=== PATIENT | female | born 1980 | race African-American/Black ===

== ENCOUNTER 2019-05-29 19:53 | Emergency (ER) | payer OTHER ==
[2019-05-29] MEDS ORDERED: BUFFERED LIDOCAINE 10 ML SYRINGE SUBQ STA (20:19)
--- NOTE | 2019-05-29 20:20 | ED Physician Documentation ---
PD HPI LOWER EXT INJURY - Stated complaint Stated Complaint: RT TOE INJURY - Chief complaint Chief Complaint: Trauma Ext - History obtained from History obtained from: Patient (She hit her right fourth toe into a door jam at home just prior to arrival with moderate pain. No other injuries. No possibility of .) Review of Systems Constitutional: reports: Reviewed and negative Throat: reports: Reviewed and negative Cardiac: reports: Reviewed and negative PD PAST MEDICAL HISTORY - Past Medical History Past Medical History: No - Past Surgical History Past Surgical History: No - Present Medications Home Medications: Ambulatory Orders Medication Instructions Recorded Confirmed No Known Home Medications 05/29/19 05/29/19 - Allergies Allergies/Adverse Reactions: Allergies Allergy/AdvReac Type Severity Reaction Status Date / Time No Known Drug Allergies Allergy Verified 05/29/19 20:01 - Social History Does the pt smoke?: No Smoking Status: Never smoker Does the pt drink ETOH?: No Does the pt have substance abuse?: No - Immunizations Immunizations are current?: Yes - POLST Patient has POLST: No PD ED PE NORMAL - Vitals Vital signs reviewed: Yes - General General: Alert and oriented X 3, No acute distress - Extremities Extremities: Other (There is a slight rotational deformity and tenderness of the proximal fourth right toe with normal neurovascular status.) - Neuro Neuro: Alert and oriented X 3, Normal speech Results - Vitals Vitals: Vital Signs - 24 hr 05/29/19 19:57 Temperature 36.8 C Heart Rate 77 Respiratory 16 Rate Blood Pressure 130/85 H O2 Saturation 97 - Rads (name of study) R 4th toe Radiology: EMP read contemporaneously (Slightly angulated and displaced fracture of the right fourth toe proximal phalanx) Procedures - Reduction Body part reduced: Right, Toe (4th) Fracture or dislocation: Fracture dislocation Anesthesia: Digital block (With buffered lidocaine) Reduction aftercare: Alignment improved, Splint applied (Camille taped in a fracture shoe by the tech) Departure - Departure Disposition: 01 Home, Self Care Clinical Impression: Fractured toe Qualifiers: Encounter type: initial encounter Toe: lesser toe Fracture type: closed Phalanx: proximal Fracture alignment: displaced Laterality: right Qualified Code(s): S92.511A - Displaced fracture of proximal phalanx of right lesser toe(s), initial encounter for closed fracture Condition: Good Record reviewed to determine appropriate education?: Yes Instructions: ED Fx Toe Closed Comments: Keep the toes camille taped as shown. And wear the special shoe for at least a couple of weeks. Return for new or worsening symptoms. Ibuprofen or Tylenol as needed for pain.
[2019-05-29 20:58] VITALS: BP 130/78
--- NOTE | 2019-05-29 21:05 | XRAY Report ---
Reason: toe inbj Procedure Date: 05/29/2019 Accession Number: [id number] / [id number] Procedure: XR - Toe(s) RT CPT Code: Final Report FULL RESULT: EXAM: RIGHT TOE RADIOGRAPHY EXAM DATE: 05/29/2019 08:32 PM. CLINICAL HISTORY: Toe inbj. COMPARISON: None. TECHNIQUE: 3 views. FINDINGS: Bones: An acute displaced spiral fracture through mid proximal phalanx of right fourth digit. Joints: Normal. No subluxations. Soft Tissues: Normal. No soft tissue swelling. IMPRESSION: An acute displaced spiral fracture through mid proximal phalanx of right fourth digit. RADIA
== END 2019-05-29 20:57 | disposition home or self-care (01) ==
LOC: ED 19:53
DX: S92.511A Displaced fracture of proximal phalanx of right lesser toe(s), initial encounter for closed fracture (principal); W22.09XA Striking against other stationary object, initial encounter; Y92.009 Unspecified place in unspecified non-institutional (private) residence as the place of occurrence of the external cause
CPT/HCPCS: 28515; 73660

== ENCOUNTER 2019-12-16 03:08 | Emergency (ER) | payer OTHER ==
--- NOTE | 2019-12-16 03:25 | ED Physician Documentation ---
PD HPI CHEST PAIN - Stated complaint Stated Complaint: TIGHT CHEST - Chief complaint Chief Complaint: General PD PAST MEDICAL HISTORY - Past Surgical History Past Surgical History: No - Present Medications Home Medications: Ambulatory Orders Medication Instructions Recorded Confirmed No Known Home Medications 05/29/19 05/29/19 - Allergies Allergies/Adverse Reactions: Allergies Allergy/AdvReac Type Severity Reaction Status Date / Time No Known Drug Allergies Allergy Verified 12/16/19 03:22 - Social History Does the pt smoke?: No Smoking Status: Never smoker Does the pt drink ETOH?: No Does the pt have substance abuse?: No - Immunizations Immunizations are current?: Yes - POLST Patient has POLST: No Results - Vitals Vitals: Vital Signs - 24 hr 12/16/19 03:19 Temperature 36.5 C Heart Rate 79 Respiratory 17 Rate Blood Pressure 132/82 H O2 Saturation 100 Oxygen O2 Source Room air
--- NOTE | 2019-12-16 03:26 | ED Physician Documentation ---
History of Present Illness - Stated complaint Stated Complaint: TIGHT CHEST - Chief complaint Chief Complaint: General - History obtained from History obtained from: Patient - History of Present Illness Timing: How many days ago (3) Pain level max: 0 Pain level now: 0 Improved by: no ameliorating factors Worsened by: no exacerbating factors - Additonal information Additional information: c/o 3 days of "tension" (per patient) sensation in right chest, right side of neck and throat. she c/o post-nasal drip, dry cough. denies dyspnea. she is 6 weeks 5 days Review of Systems Constitutional: denies: Fever, Chills, Sweats Cardiac: reports: Chest pain / pressure (right-sided chest "tension", per patient although she denies enrico pain). denies: Palpitations, Pedal edema, Calf pain Respiratory: reports: Cough (mild, occasional nonproductive cough). denies: Dyspnea, Hemoptysis, Wheezing GI: denies: Abdominal Pain : reports: Now EGA (6w5d) Musculoskeletal: denies: Extremity swelling PD PAST MEDICAL HISTORY - Past Medical History Past Medical History: Yes Respiratory: Asthma - Past Surgical History Past Surgical History: No - Present Medications Home Medications: Ambulatory Orders Medication Instructions Recorded Confirmed No Known Home Medications 05/29/19 05/29/19 - Allergies Allergies/Adverse Reactions: Allergies Allergy/AdvReac Type Severity Reaction Status Date / Time No Known Drug Allergies Allergy Verified 12/16/19 03:22 - Social History Does the pt smoke?: No Smoking Status: Never smoker Does the pt drink ETOH?: No Does the pt have substance abuse?: No - Immunizations Immunizations are current?: Yes - POLST Patient has POLST: No PD ED PE NORMAL - Vitals Vital signs reviewed: Yes - General General: Alert and oriented X 3, No acute distress, Well developed/nourished - Neck Neck: Supple, no meningeal sign - Cardiac Cardiac: RRR, No murmur, No gallop, No rub - Respiratory Respiratory: No respiratory distress, Clear bilaterally - Abdomen Abdomen: Soft, Non tender - Extremities Extremities: No edema Results - Vitals Vitals: Vital Signs - 24 hr 12/16/19 04:37 Temperature 36.6 C Heart Rate 72 Respiratory 16 Rate Blood Pressure 125/72 O2 Saturation 100 Oxygen O2 Source Room air - EKG (time done) No standard instances Rate: Rate (enter#) (77) Rhythm: NSR [place]: Normal Intervals: Normal OK QRS: Normal Ischemia: Normal ST segments PD MEDICAL DECISION MAKING - ED course Complexity details: considered differential, d/w patient ED course: VSS, NAD, and unremarkable exam including auscultation of lungs. EKG is unremarkable. Low suspicion for PE. I recommended cxr to screen for early evidence of infection or pneumothorax, though these are unlikely given vital signs and unremarkable exam. Patient declines cxr, will return if worse, f/u with PMD. Departure - Departure Disposition: 01 Home, Self Care Clinical Impression: Chest pain Condition: Good Instructions: ED Chest Pain Atypical Unkn Cause Discharge Date/Time: 12/16/19 04:38
[2019-12-16 04:38] VITALS: BP 125/72
== END 2019-12-16 04:38 | disposition home or self-care (01) ==
LOC: ED 03:08
DX: O99.891 Other specified diseases and conditions complicating pregnancy (principal); R07.89 Other chest pain; R05 Cough; R09.82 Postnasal drip; Z3A.01 Less than 8 weeks gestation of pregnancy
CPT/HCPCS: 93005; 99283; 99284

== ENCOUNTER 2020-05-15 09:06 | Outpatient (CLI) | payer OTHER ==
[2020-05-15 10:14] LABS: HCT - HEMATOCRIT 32.7 % (37.0-47.0); MEAN CORPUSCULAR HEMOGLOBIN 32.8 pg (27.0-31.0); MEAN CORPUSCULAR HGB CONC 33.6 g/dL (32.0-36.0); MEAN CORPUSCULAR VOLUME 97.6 fL (81.0-99.0); MEAN PLATELET VOLUME 8.5 fL (7.9-10.8); RED BLOOD COUNT 3.35 10^6/uL (4.20-5.40); RED CELL DISTRIBUTION WIDTH 11.7 % (12.0-15.0); WHITE BLOOD COUNT 7.4 x10^3/uL (4.8-10.8)
== END 2020-05-15 09:07 | disposition home or self-care (01) ==
LOC: LAB 09:06
PROVIDERS: ATTEND Advanced Practice Midwife
DX: O09.529 Supervision of elderly multigravida, unspecified trimester (principal); Z36.89 Encounter for other specified antenatal screening
CPT/HCPCS: 36415; 82950; 85027

== ENCOUNTER 2020-05-22 11:40 | Outpatient (CLI) | payer OTHER | END 2020-05-22 11:41 | disposition home or self-care (01) | LOC: LAB 11:40 | PROVIDERS: ATTEND Nurse Practitioner Obstetrics & Gynecology | DX: O99.810 Abnormal glucose complicating pregnancy (principal) ==

== ENCOUNTER 2020-05-23 11:11 | Outpatient (CLI) | payer OTHER ==
[2020-05-23 12:16] LABS: GTT GLUCOSE,FASTING 83 mg/dL (70-100)
== END 2020-05-23 11:12 | disposition home or self-care (01) ==
LOC: LAB 11:11
PROVIDERS: ATTEND Nurse Practitioner Obstetrics & Gynecology
DX: O99.810 Abnormal glucose complicating pregnancy (principal)
CPT/HCPCS: 36415; 82951; 82952

== ENCOUNTER 2020-06-01 16:55 | Outpatient (CLI) | payer OTHER | END 2020-06-01 16:56 | disposition home or self-care (01) | LOC: LAB 16:55 | PROVIDERS: ATTEND Advanced Practice Midwife | DX: O09.529 Supervision of elderly multigravida, unspecified trimester (principal) | CPT/HCPCS: 36415; 82239 ==

== ENCOUNTER 2020-06-27 08:00 | Outpatient (CLI) | payer OTHER | END 2020-06-27 23:59 | disposition home or self-care (01) | LOC: LAB.WC 08:00 | PROVIDERS: ATTEND Advanced Practice Midwife | DX: Z36.85 Encounter for antenatal screening for Streptococcus B (principal); O09.529 Supervision of elderly multigravida, unspecified trimester | CPT/HCPCS: 87797 ==

== ENCOUNTER 2020-07-28 09:42 | Inpatient (IN) | payer OTHER ==
[2020-07-28] MEDS ORDERED: OXYTOCIN/SODIUM CHLORIDE 500 ML IV PRN (09:55)
[2020-07-28] MEDS ORDERED: OXYTOCIN 10 UNIT/ML VIAL IM PRN (09:55)
[2020-07-28] MEDS ORDERED: METHYLERGONOVINE 0.2 MG/ML VIAL IM PRN (09:55)
[2020-07-28] MEDS ORDERED: miSOPROStoL 200 MCG TABLET BC PRN (09:55)
[2020-07-28] MEDS ORDERED: SODIUM CHLORIDE FLUSH 0.9% 10 ML SYRINGE IVP PRN (09:55)
[2020-07-28] MEDS ORDERED: TRANEXAMIC ACID IN NACL 1,000 MG/100 ML BAG IV PRN (09:55)
[2020-07-28] MEDS ORDERED: LIDOCAINE-MPF 1% 30 ML VIAL ID PRN (09:55)
[2020-07-28] MEDS ORDERED: CARBOPROST TROMETHAMINE 250 MCG/ML AMP IM PRN (09:55)
[2020-07-28] MEDS ORDERED: ONDANSETRON 4 MG/2 ML VIAL IVP PRN (09:56)
[2020-07-28] MEDS ORDERED: LACTATED RINGERS 1,000 ML IV SCH (10:00)
--- NOTE | 2020-07-28 10:21 | HISTORY & PHYSICAL EXAMINATION ---
Admit History - Visit Reason Visit Reason: Contractions, Bloody show - : 5 Parity: 3 Premature: 0 Ectopic: 0 : 1 Care: positive: [facility] Risk/History: positive: None Complications This : positive: None Smoking Status: Never smoker - Mother's Labs Mother's Blood Type: positive: O Mother's RH: positive: Positive GBS: positive: Group B Step Negative Rubella Status: positive: Immune Meds/Allgy - Home Medications Home Medications: Ambulatory Orders Medication Instructions Recorded Confirmed No Known Home Medications 05/29/19 05/29/19 - Allergies Allergies/Adverse Reactions: Allergies Allergy/AdvReac Type Severity Reaction Status Date / Time No Known Drug Allergies Allergy Verified 12/16/19 03:22 Review of Systems - Constitutional Constitutional: denies: Fatigue, Fever, Chills, Malaise - Eyes Eyes: denies: Blurred vision, Spots in vision, Dipolpia - Cardiovascular Cariovascular: denies: Irregular heart rate, Palpitations, Chest pain - Respiratory Respiratory: denies: Cough, SOB at rest - Gastrointestinal Gastrointestinal: denies: Constipation, Diarrhea, Change in bowel habits - Integumentary Integumentary: denies: Rash, Pruritis - Neurological Neurological: denies: Headache Physical - Abdominal Exam Contraction Frequency (min/apart): 3-5 Contraction Intensity: positive: Strong Uterine Resting Tone: positive: Soft - Monitoring Heart Rate Baseline: 140 Strip Review: positive: Category I - Presentation Presentation: positive: Vertex - Vaginal Exam Membranes: positive: Membranes intact Dilation (in cm): 8 Effacement (%): 90 Station: positive: 1 Cervical Position: positive: Anterior - Speculum Exam Speculum Exam Performed: positive: No Findings: positive: Other Plan for Labor - Plan For Labor I expect patient to be DC'd or transferred within 96 hours.: Yes Plan for Labor: HPI: Fernando presents today with complaints of contractions and bloody show. She reports contractions began this early this morning and have become progressively more intense. She denies leakage of fluid other than bloody show. She is supported by her partner Ricardo today. She has been a patient of [facility] since her transfer of care from [facility] at 28 weeks. She has received consistent care through the duration of her . She has been taking oral acyclovir for HSV prophylaxis since 36wks gestation as recommended and she has no active lesions. Her has been complicated only by her elevated 1 hour GTT but her 3 hour GTT was WNL. She will be admitted to [facility] for expectant management. She requests an epidural for pain management as soon as possible. Dating criteria: LMP 10/30/2019 Initial ultrasound @ 5.4wks dates (not c/w LMP dating) Serial exams agree with established U/S SYD 07/22/2020 Medications: PNV, Valacyclovir 1gm oral tab daily Allergies: NKDA OB Hx: G1: 05/12/1999, @ 40wks, Male 7lb G2: 11/19/2004, @ 40wks, Female 7lb G3: 04/30/2018, @ 40wks, Male 7lb 14oz G4: 04/12/2018 SAB G5: Current PMHx: genital HSV Surgical Hx: unremarkable Social Hx: Never smoker. No ETOH or IVDA. Partner Ricardo Family Hx: Diabetes - mother; arthritis - mother, PGF; cancer- father course: LMP: 10/30/2019 YSD by LMP: 08/05/2020 Final SYD: 07/22/2020 Initial U/S: at [facility] at 5.4 wks for SYD 07/22/2020 O pos/Rubella immune VZV- non immune Gentic testing: afp tetra- neg; cfDNA- neg, CF-neg, SMA-neg FAS: Anterior placenta. ROLANDA wnl. Small choroid plexus cyst- c/w normal variant. 3VC. EFW 34% spinal view f/u- wnl Glucola: 143 3hr wnl (83, 122,104,58) Flu: received TDAP: 05/03/2020 GBS: Negative @ 36.2 HSV: endorses genital herpes- acyclovir at 36wks Breast pump Rx : already has MOD: . Would consider epidural again. BOY- Jak. FOB: Ricardo pp contraception: wants to be on what she was taking before, can't remember the name. Will bring package next visit. PAP: 2018-wnl per [facility] Physical Exam: Normocephalic, atraumatic Heart RRR w/o M/G/R Lungs CTAB Abdomen gravid, soft, nontender EFW 3600g FHR baseline 140s, moderate variability, + accels, no decels Contractions palpate strong every 3-5 minutes with soft resting tone SVE 8/90/0 with intact mambranes Bilateral LE's no edema Mood is good Assessment: 39yo @ 40.6wks gestation by 5.4wk U/S Active labor GBS negative FHR Category I Plan: Admit for expectant management Anticipate
[2020-07-28 10:27] LABS: BASOPHILS % (AUTO) 0.4 %; EOSINOPHILS % (AUTO) 0.5 %; HCT - HEMATOCRIT 35.8 % (37.0-47.0); HGB - HEMOGLOBIN 11.9 g/dL (12.0-16.0); LYMPHOCYTES # (AUTO) 2.1 10^3/uL (1.5-3.5); LYMPHOCYTES % (AUTO) 25.4 %; MEAN CORPUSCULAR HGB CONC 33.2 g/dL (32.0-36.0); MEAN CORPUSCULAR VOLUME 96.2 fL (81.0-99.0); MEAN PLATELET VOLUME 9.6 fL (7.9-10.8); MONOCYTES # (AUTO) 0.4 10^3/uL (0.0-1.0); MONOCYTES % (AUTO) 4.6 %; NEUTROPHILS # (AUTO) 5.7 10^3/uL (1.5-6.6); NEUTROPHILS % (AUTO) 68.3 %; PLT - PLATELET COUNT 203 10^3/uL (130-450); RED BLOOD COUNT 3.72 10^6/uL (4.20-5.40); WHITE BLOOD COUNT 8.4 x10^3/uL (4.8-10.8)
[2020-07-28] MEDS ORDERED: ROPIVACAINE 0.2% 200 MG/100 ML BAG EP ONE (10:39)
[2020-07-28] MEDS ORDERED: HYDROCORTISONE 1% CREAM 28 GM TUBE PR PRN (11:15)
[2020-07-28] MEDS ORDERED: WITCH HAZEL/GLYCERIN 1 PAD TOP PRN (11:15)
--- NOTE | 2020-07-28 11:40 | DELIVERY NOTE ---
Delivery Note - Labor Labor: positive: Spontaneous - Delivery Method Delivery Method: positive: Spontaneous vaginal delivery - Presentation Presentation: positive: Vertex, TOM - left occiput anterior - Nuchal Cord Nuchal Cord: positive: None - Amniotic Fluid Description Amniotic Fluid Description: positive: Light meconium - Episiotomy Type Episiotomy Type: positive: None - Laceration Laceration: positive: 1st degree, Perineal - Suture Suture Type: positive: Vicryl Suture Size: positive: 2-0 - Delivery Outcome Delivery Outcome: positive: Livebirth - Creighton Creighton: positive: Placed in direct skin contact with mother, Stimulated, Warmed, [place] used Creighton sex: positive: Male - Cord Cord: positive: 3 vessels - Placenta Placenta: positive: Intact, Spontaneous - Estimated Blood Loss Estimated Blood Loss (in cc): 400 - Post Delivery Events Post Delivery Events: positive: No post delivery events - Delivery Comments (Free Text/Narrative) Delivery Comments (Free Text/Narrative): Labor: This 39yo @ 40.6wks gestation by 5.4wk U/S presented on 07/28/2020 in active labor. Cervix was 8/90/0 and vertex. FHR pattern demonstrated Category I pattern throughout. Normal labor course. SROM occurred at 1041 and was noted to be a moderate amount of light meconium stained amniotic fluid. Pt progressed to c/c/+2 @ 1041. : Normal of viable male 07/28/2020 @ 1043. No nuchal cord. The was placed on maternal abdomen, stimulated, dried, and placed skin to skin. 's were 9/9 at 1 and 5 minutes respectively. Pitocin administered via IV for hemostasis. The umbilical cord was allowed to stop pulsating at which time it was doubly clamped by CNM and cut by FOB. 3VC. Cord blood was obtained. Fundal massage and gentle cord traction applied for active management of the third stage. Placenta delivered spontaneously and intact at 1047. EBL 400mL. Fourth stage: Uterine fundus firm and there is no excessive bleeding. The perineum, vagina, and cervix were inspected and noted to have 1 degree perineal laceration which was repaired using a 2-[address]-1 needle, in standard fashion and under sterile conditions. Vaginal examination following repair was completed. Tissues well approximated. initiated. Family bonding well. Both mother and baby were left in stable condition.
[2020-07-28] MEDS: ACETAMINOPHEN 500 MG TABLET PO SCH ×2 (11:48→19:50)
[2020-07-28] MEDS: IBUPROFEN 800 MG TABLET PO SCH ×2 (11:49→19:50)
[2020-07-28] MEDS ORDERED: SODIUM CHLORIDE FLUSH 0.9% 10 ML SYRINGE IVP SCH (17:00)
[2020-07-28] MEDS ORDERED: DOCUSATE SODIUM 100 MG CAPSULE PO SCH (21:00)
[2020-07-29] MEDS: IBUPROFEN 800 MG TABLET PO SCH ×3 (02:02→13:58)
[2020-07-29] MEDS: ACETAMINOPHEN 500 MG TABLET PO SCH ×2 (04:00→12:24)
[2020-07-29 08:34] VITALS: BP 111/77
--- NOTE | 2020-07-29 09:18 | PROVIDER PROGRESS NOTE ---
Subjective - Subjective Subjective: FINAL PROGRESS NOTE: S: Bonding well with baby. without difficulty. Reports it took 2-3 days for her milk to come in with her previous babies and she was able to pump quite a lot since he was in the NICU and she plans to use her pump when she gets home to promote her milk coming in. Her bleeding is decreased and is light. Her pain is well controlled with oral medications. She desires to be discharged home today. Her partner Ricardo is supportive at the bedside. O: BP 111/77, T 36.9, HR 74, RR 16 Heart RRR w/o M/G/R, lungs CTAB, abdomen soft and nontender with fundus firm at U-1, perineum intact, light lochia rubra, bilateral LE's no edema. A: 39yo -->P4 PPD#1 s/p TSVD viable male normal recovery P: Reviewed pp self care and warning s/sx. Discharge home today on PPD#1. Encouraged continuation of PNV while . Continue ibuprofen and tylenol OTC as needed for pain management. F/u in 1-2 weeks with myself and [facility] or sooner PRN. Pt has emergency contact number. Pt verbalized understanding and agrees to above plan. She denies further questions or concerns at this time. Objective - Vital Signs/Intake & Output Vital Signs: Vital Signs x48h Temp Pulse Resp BP Pulse Ox 07/29/20 08:32 36.9 C 74 16 111/77 100 07/29/20 04:00 36.8 C 81 18 118/69 99 Intake & Output: Intake & Output 07/26/20 07/27/20 07/28/20 07/29/20 23:59 23:59 23:59 23:59 Intake Total 1133.333 Output Total 600 Balance 533.333 - Lab Results Fish Bones: 07/28/20 10:15 Other Labs: Lab Results x24hrs 07/28/20 07/28/20 Range/Units 10:15 10:15 WBC 8.4 (4.8-10.8) x10^3/uL RBC 3.72 L (4.20-5.40) 10^6/uL Hgb 11.9 L (12.0-16.0) g/dL Hct 35.8 L (37.0-47.0) % MCV 96.2 (81.0-99.0) fL MCH 32.0 H (27.0-31.0) pg MCHC 33.2 (32.0-36.0) g/dL RDW 12.0 (12.0-15.0) % Plt Count 203 (130-450) 10^3/uL MPV 9.6 (7.9-10.8) fL Neut # (Auto) 5.7 (1.5-6.6) 10^3/uL Lymph # (Auto) 2.1 (1.5-3.5) 10^3/uL [place] # (Auto) 0.4 (0.0-1.0) 10^3/uL Eos # (Auto) 0.0 (0.0-0.7) 10^3/uL Baso # (Auto) 0.0 (0.0-0.1) 10^3/uL Absolute Nucleated RBC 0.00 x10^3/uL Nucleated RBC % 0.0 /100WBC Blood Type O POSITIVE Antibody Screen NEGATIVE
--- NOTE | 2020-07-29 09:19 | Discharge Plan ---
Discharge Plan Problem Reviewed?: Yes Disposition: Home, Self Care Condition: Good Diet: Regular Activity Restrictions: No Restrictions Shower Restrictions: No Driving Restrictions: No Weight Bearing: Full Weight No Smoking: If you smoke, Please STOP! Call for help. Follow-up with: Sally Edward CNM, ARNP [Provider Admit Priv/Credential] -
--- NOTE | 2020-07-29 09:24 | DISCHARGE SUMMARY ---
Discharge Summary Condition at Discharge: Good Discharge Disposition: 01 Home, Self Care - HOSPITAL COURSE Hospital Course: Date of Admission 07/28/2020 Date of Discharge 07/29/2020 Diagnosis on Admission: 1. 39yo @ 40.6wks gestation 2. Active labor 3. GBS negative Diagnosis on Discharge: 1. 39yo PPD#1 s/p TSVD viable male infant 2. 3. normal recovery Brief History: She is a patient of [facility] who presented on 07/28/2020 in active labor. Cervix was 8/90/0 and vertex. FHR Category I. She progressed spontaneously to deliver a viable male infant on 07/28/2020 @ 1043. Apgars were 9/9 at 1 and 5 minutes respectively. EBL 400mL. Pt was noted to have a 1st degree perineal laceration which was repaired using a 2-[address]-1 needle in standard fashion and under sterile conditions. She has been doing well in her course. She is ambulating and tolerating a regular diet. She is urinating without difficulty and her lochia is normal. Her pain is well controlled with oral medications. She will be discharged home today on day #1 with instructions to continue taking her vitamin while , and to continue taking ibuprofen and tylenol over the counter as needed for pain management. She intends to follow up with myself and [facility] in 1 week or sooner if needed. She has been given precautions to call if she has any worsening fevers, chills, abdominal pain, increased vaginal bleeding or foul smelling vaginal lochia. - ALLERGIES Allergies/Adverse Reactions: Allergies Allergy/AdvReac Type Severity Reaction Status Date / Time No Known Drug Allergies Allergy Verified 12/16/19 03:22 - MEDICATIONS Home Medications: Ambulatory Orders Medication Instructions Recorded Confirmed No Known Home Medications 05/29/19 05/29/19 - LABS Result Diagrams: 07/28/20 10:15
--- NOTE | 2020-07-29 17:31 | Labor Flowsheet ---
Labor Flowsheet Datetime Report Generated by CPN: 07/29/2020 17:31 Datetime: 07/29/2020 08:33 VITAL SIGNS NBP Sys/Osiris/Mean (mmHg): 111 : 77 : 84 Pulse: 68 Datetime: 07/28/2020 12:37 Stage of : Recovery PAIN Pain Type: Cramping Pain Assessment Comments: 6 Datetime: 07/28/2020 11:55 Pain Relief Measures: Pain Medication Given Datetime: 07/28/2020 11:10 Respirations: 16 Temperature (C): 36.5
== END 2020-07-29 17:30 | disposition home or self-care (01) | DRG 807 ==
LOC: WFO 09:42 → FBP 09:45 → WFO 09:50 → FBP 09:55
PROVIDERS: ADMIT Nurse Practitioner Obstetrics & Gynecology; ATTEND Nurse Practitioner Obstetrics & Gynecology
PROC: 10E0XZZ Delivery of Products of Conception, External Approach (ICD-10-PCS; principal; 2020-07-28)
PROC: 0HQ9XZZ Repair Perineum Skin, External Approach (ICD-10-PCS; 2020-07-28)
DX: O48.0 Post-term pregnancy (principal); Z37.0 Single live birth; O77.0 Labor and delivery complicated by meconium in amniotic fluid; O70.0 First degree perineal laceration during delivery; Z3A.40 40 weeks gestation of pregnancy
CPT/HCPCS: 36415; 85025; 86850; 86900; 86901; A9270; J7120

== ENCOUNTER 2020-11-15 01:15 | Emergency (ER) | payer OTHER ==
--- NOTE | 2020-11-15 01:44 | ED Physician Documentation ---
PD HPI CHEST PAIN - Stated complaint Stated Complaint: SOA/CHEST PX - Chief complaint Chief Complaint: Cardiac - History obtained from History obtained from: Patient - Additional information Additional information: Patient comes emergency department chief complaint of's lower substernal chest pain that came on about 10 minutes ago. Patient states she was fine earlier today, but had a meal of greasy chicken around 2100 this evening. She states she was watching TV when she suddenly noted onset of the pain. She states it made her feel little lightheaded and radiated to her back. No shortness of breath. No nausea or vomiting. She has a history of GERD, but states prior episodes have not been as bad as this one. She does not personally have a gallbladder history, but her aunt had gallstones. No other complaints at this time. Review of Systems Ten Systems: 10 systems reviewed and negative Constitutional: reports: Reviewed and negative Eyes: reports: Reviewed and negative Ears: reports: Reviewed and negative Nose: reports: Reviewed and negative Throat: reports: Reviewed and negative Cardiac: reports: Chest pain / pressure Respiratory: reports: Reviewed and negative. denies: Dyspnea, Cough GI: denies: Abdominal Pain, Nausea : reports: Reviewed and negative Skin: reports: Reviewed and negative Musculoskeletal: reports: Reviewed and negative Neurologic: reports: Reviewed and negative Psychiatric: reports: Reviewed and negative Endocrine: reports: Reviewed and negative Immunocompromised: reports: Reviewed and negative PD PAST MEDICAL HISTORY - Past Medical History Respiratory: Asthma - Past Surgical History Past Surgical History: No - Present Medications Home Medications: Ambulatory Orders Medication Instructions Recorded Confirmed No Known Home Medications 05/29/19 05/29/19 - Allergies Allergies/Adverse Reactions: Allergies Allergy/AdvReac Type Severity Reaction Status Date / Time No Known Drug Allergies Allergy Verified 11/15/20 01:23 - Social History Does the pt smoke?: No Smoking Status: Never smoker Does the pt drink ETOH?: No Does the pt have substance abuse?: No - Immunizations Immunizations are current?: Yes - POLST Patient has POLST: No PD ED PE NORMAL - Vitals Vital signs reviewed: Yes - General General: Alert and oriented X 3, Well developed/nourished, Other (The patient is not in distress but appears moderately uncomfortable.) - HEENT HEENT: Atraumatic, PERRL, EOMI, Moist mucous membranes - Neck Neck: Supple, no meningeal sign - Cardiac Cardiac: RRR, No murmur - Respiratory Respiratory: No respiratory distress, Clear bilaterally - Abdomen Abdomen: Soft, Non tender, Non distended - Derm Derm: Normal color, Warm and dry, No rash - Extremities Extremities: No deformity, No edema - Neuro Neuro: Alert and oriented X 3, 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, No motor deficit, No sensory deficit, Normal speech - Psych Psych: Normal mood, Normal affect Results - Vitals Vitals: Vital Signs - 24 hr 11/15/20 11/15/20 01:23 02:05 Temperature 36.8 C Heart Rate 70 79 Respiratory 26 H 13 Rate Blood Pressure 140/80 H 128/96 H O2 Saturation 100 100 Oxygen O2 Source Room air - EKG (time done) 0120 Rate: Rate (enter#) (79) Rhythm: NSR [place]: Normal Intervals: Normal ID QRS: Normal Ischemia: Normal ST segments, Non specific changes Compare to prior EKG: Old EKG unavailable Computer interpretation: Agree with computer - Labs Labs: Laboratory Tests 11/15/20 11/15/20 01:46 01:46 WBC 7.5 RBC 3.77 L Hgb 11.5 L Hct 35.1 L MCV 93.1 MCH 30.5 MCHC 32.8 RDW 11.8 L Plt Count 218 MPV 8.8 Neut # (Auto) 3.3 Lymph # (Auto) 3.8 H [place] # (Auto) 0.3 Eos # (Auto) 0.2 Baso # (Auto) 0.1 Absolute Nucleated RBC 0.00 Nucleated RBC % 0.0 Sodium 136 Potassium 2.9 L Chloride 99 L Carbon Dioxide 25 Anion Gap 12.0 BUN 15 Creatinine 0.8 Estimated GFR (MDRD) 97 Glucose 203 H Calcium 9.5 Total Bilirubin 0.7 AST 44 H ALT 37 Alkaline Phosphatase 57 Total Protein 8.1 Albumin 4.6 Globulin 3.5 Albumin/Globulin Ratio 1.3 Lipase 36 - Rads (name of study) CXR Radiology: Final report received, EMP read indepedently, See rad report (neg) US abd Radiology: Final report received, EMP read indepedently, See rad report (cholelithiasis without cholecystitis or CBD dilatation.) PD MEDICAL DECISION MAKING - ED course Complexity details: reviewed results, re-evaluated patient, considered differential, d/w patient ED course: The patient was treated symptomatically with IV fluid, Toradol, and Dilaudid. She was worked up with labs, EKG, chest x-ray, and right upper quadrant ultrasound. Departure - Departure Disposition: 01 Home, Self Care Clinical Impression: Gastroesophageal reflux disease Qualifiers: Esophagitis presence: esophagitis presence not specified Qualified Code(s): K21.9 - Gastro-esophageal reflux disease without esophagitis Cholelithiasis Qualifiers: Cholelithiasis location: gallbladder Cholecystitis presence: without cholecystitis Biliary obstruction: without biliary obstruction Qualified Code(s): K80.20 - Calculus of gallbladder without cholecystitis without obstruction Condition: Stable Instructions: ED GERD, ED Gallstone W Biliary Colic Comments: Your labs look good as you does your EKG and chest x-ray. Your ultrasound shows gallstones, but no inflammation of the gallbladder and no evidence of blockage of the bile duct. You may want to follow-up with surgery to discuss the pros and cons of having your gallbladder taken out. It is not clear whether you are passing a gallstone and that caused the pain or whether you are having some reflux as a cause of the pain. There is no evidence of an emergent condition within the chest, including the heart. You are very low risk for a heart attack at this time.
[2020-11-15] MEDS ORDERED: HYDROmorphone 1 MG/ML CARPUJECT IVP STA (01:47)
[2020-11-15] MEDS ORDERED: KETOROLAC 30 MG/ML VIAL IVP STA (01:47)
[2020-11-15] MEDS ORDERED: SODIUM CHLORIDE 0.9% 1,000 ML IV STA (01:47)
[2020-11-15] MEDS ORDERED: GI COCKTAIL 120 ML BOTTLE PO STA (01:48)
--- NOTE | 2020-11-15 01:50 | XRAY Report ---
PROCEDURE: Chest 1 View X-Ray INDICATIONS: chest pain TECHNIQUE: One view of the chest was acquired. COMPARISON: None FINDINGS: Surgical changes and devices: None. Lungs and pleura: No pleural effusions or pneumothorax. Lungs are clear. Mediastinum: Mediastinal contours appear normal. Heart size is normal. Bones and chest wall: No suspicious bony lesions. Overlying soft tissues appear unremarkable. IMPRESSION: No evidence acute pulmonary process. Reviewed by: Candelario Cam MD on 11/15/2020 1:48 AM PDT Approved by: Candelario Cam MD on 11/15/2020 1:48 AM PDT Station ID: [id number]
[2020-11-15 01:55] LABS: BASOPHILS # (AUTO) 0.1 10^3/uL (0.0-0.1); BASOPHILS % (AUTO) 0.8 %; EOSINOPHILS # (AUTO) 0.2 10^3/uL (0.0-0.7); HCT - HEMATOCRIT 35.1 % (37.0-47.0); HGB - HEMOGLOBIN 11.5 g/dL (12.0-16.0); LYMPHOCYTES # (AUTO) 3.8 10^3/uL (1.5-3.5); MEAN CORPUSCULAR HEMOGLOBIN 30.5 pg (27.0-31.0); MEAN CORPUSCULAR HGB CONC 32.8 g/dL (32.0-36.0); MEAN CORPUSCULAR VOLUME 93.1 fL (81.0-99.0); MEAN PLATELET VOLUME 8.8 fL (7.9-10.8); MONOCYTES # (AUTO) 0.3 10^3/uL (0.0-1.0); MONOCYTES % (AUTO) 3.5 %; NEUTROPHILS # (AUTO) 3.3 10^3/uL (1.5-6.6); NEUTROPHILS % (AUTO) 43.4 %; PLT - PLATELET COUNT 218 10^3/uL (130-450); RED BLOOD COUNT 3.77 10^6/uL (4.20-5.40); RED CELL DISTRIBUTION WIDTH 11.8 % (12.0-15.0); WHITE BLOOD COUNT 7.5 x10^3/uL (4.8-10.8)
[2020-11-15] MEDS ORDERED: LIDOCAINE VISCOUS 2% 100 ML BOTTLE MM STA (01:56)
[2020-11-15] MEDS ORDERED: MAG HYDROX/AL HYDROX/SIMETH 30 ML UDC PO STA (01:56)
[2020-11-15] MEDS ORDERED: GI COCKTAIL 120 ML BOTTLE PO SCH (02:00)
[2020-11-15 02:06] LABS: ALBUMIN 4.6 g/dL (3.2-5.5); ALBUMIN/GLOBULIN RATIO 1.3 (1.0-2.2); BILIRUBIN,TOTAL 0.7 mg/dL (0.2-1.0); CALCIUM 9.5 mg/dL (8.5-10.3); CREATININE 0.8 mg/dL (0.4-1.0); POTASSIUM 2.9 mmol/L (3.5-5.0); TOTAL PROTEIN 8.1 g/dL (6.7-8.2)
[2020-11-15] MEDS ORDERED: POTASSIUM CHLORIDE 20 MEQ TABLET PO STA (02:31)
[2020-11-15 02:43] VITALS: BP 132/89
--- NOTE | 2020-11-15 08:35 | Ultrasound Report ---
PROCEDURE: Abdomen Limited INDICATIONS: upper abd/chest pn after greasy food + hx TECHNIQUE: Real-time focused scanning was performed of the abdomen, with image documentation. COMPARISON: None FINDINGS: The liver is normal in size and echogenicity. The liver measures 14.9 cm in length. There is no intrahepatic ductal dilatation or ascites. Multiple gallstones are noted. There is borderline gallbladder wall thickening. There is no perichole cystic fluid. No sonographic Jaeger sign is present. The common bile duct measures 4 mm. The right ki dney is normal in appearance and measures 11.9 cm in length. IMPRESSION: Cholelithiasis associated with borderline gallbladder wall thickening. Otherwise normal right upper q uadrant ultrasound. Findings correspond with preliminary reading. Reviewed by: Haris Wolff on 11/15/2020 8:34 AM PDT Approved by: Haris Wolff on 11/15/2020 8:34 AM PDT Station ID: [id number]
== END 2020-11-15 02:55 | disposition home or self-care (01) ==
LOC: ED 01:15
DX: K21.9 Gastro-esophageal reflux disease without esophagitis (principal); K80.20 Calculus of gallbladder without cholecystitis without obstruction
CPT/HCPCS: 36415; 71045; 76705; 80053; 83690; 85025; 93005; 96374; 96375; 99284; A9270; J1170

== ENCOUNTER 2021-01-19 01:52 | Emergency (ER) | payer OTHER ==
--- NOTE | 2021-01-19 01:56 | ED Physician Documentation ---
PD HPI ABD PAIN - Stated complaint Stated Complaint: ABD PX - History obtained from History obtained from: Patient - History of Present Illness Timing - onset: How many minutes ago (20) Timing - details: Abrupt onset Pain level now: 8 Quality: Pain Location: RUQ, Epigastric Improved by: Other (nothing) Worsened by: Palpation Associated symptoms: Nausea. No: Fever, Vomiting Similar symptoms before: Diagnosis (biliary colic) - Additional information Additional information: c/o "gallstone attack" (per patient). 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 She feels this is similar to when she was evaluated in this ED 2 months ago and diagnosed with biliary colic. She followed up with a surgeon and she says that the plan is to eventually schedule to have cholecystectomy. Review of Systems Constitutional: denies: Fever, Chills, Sweats Cardiac: reports: Reviewed and negative Respiratory: reports: Reviewed and negative GI: reports: Abdominal Pain, Nausea. denies: Abdominal Swelling, Vomiting, Constipation, Diarrhea : denies: Dysuria, Frequency PD PAST MEDICAL HISTORY - Past Medical History Respiratory: Asthma - Past Surgical History Past Surgical History: No - Present Medications Home Medications: Ambulatory Orders Medication Instructions Recorded Confirmed Ondansetron Odt [Zofran] 4 mg TL Q6H PRN #10 tablet 01/19/21 Oxycodone HCl/Acetaminophen 1 - 2 each PO Q6H PRN #14 tablet 01/19/21 [Percocet 5-325 mg Tablet] - Allergies Allergies/Adverse Reactions: Allergies Allergy/AdvReac Type Severity Reaction Status Date / Time No Known Drug Allergies Allergy Verified 01/19/21 02:17 - Social History Does the pt smoke?: No Smoking Status: Never smoker Does the pt drink ETOH?: No Does the pt have substance abuse?: No - Immunizations Immunizations are current?: Yes - POLST Patient has POLST: No PD ED PE NORMAL - Vitals Vital signs reviewed: Yes - General General: Alert and oriented X 3, Well developed/nourished, Other (obvious painful distress) - Cardiac Cardiac: RRR, No murmur - Respiratory Respiratory: No respiratory distress, Clear bilaterally - Abdomen Abdomen: Soft, Non distended, Other (mild/moderate TTP epigastric and RUQ without rebound or tenderness) - Back Back: No CVA TTP Results - Vitals Vitals: Vital Signs - 24 hr 01/19/21 04:52 Temperature 36.7 C Heart Rate 80 Respiratory 12 Rate Blood Pressure 121/84 H O2 Saturation 97 Oxygen O2 Source Room air - Labs Labs: Laboratory Tests 01/19/21 01/19/21 01/19/21 02:10 02:10 03:35 WBC 7.6 RBC 3.75 L Hgb 11.6 L Hct 35.4 L MCV 94.4 MCH 30.9 MCHC 32.8 RDW 11.8 L Plt Count 257 MPV 9.0 Neut # (Auto) 2.7 Lymph # (Auto) 4.3 H [place] # (Auto) 0.3 Eos # (Auto) 0.2 Baso # (Auto) 0.1 Absolute Nucleated RBC 0.00 Nucleated RBC % 0.0 Sodium 138 Potassium 3.4 L Chloride 99 L Carbon Dioxide 25 Anion Gap 14.0 H BUN 17 Creatinine 1.0 Estimated GFR (MDRD) 75 L Glucose 164 H Calcium 9.7 Total Bilirubin 0.6 AST 26 ALT 29 Alkaline Phosphatase 51 Total Protein 8.6 H Albumin 4.6 Globulin 4.0 Albumin/Globulin Ratio 1.1 Lipase 62 H Urine Color YELLOW Urine Clarity CLEAR Urine pH 6.5 Ur Specific [place] 1.025 Urine Protein NEGATIVE Urine Glucose (UA) NEGATIVE Urine Ketones NEGATIVE Urine Occult Blood NEGATIVE Urine Nitrite NEGATIVE Urine Bilirubin NEGATIVE Urine Urobilinogen 0.2 (NORMAL) Ur Leukocyte Esterase NEGATIVE Ur Microscopic Review NOT INDICATED Urine Culture Comments NOT INDICATED Urine HCG, Qual 01/19/21 03:35 WBC RBC Hgb Hct MCV MCH MCHC RDW Plt Count MPV Neut # (Auto) Lymph # (Auto) [place] # (Auto) Eos # (Auto) Baso # (Auto) Absolute Nucleated RBC Nucleated RBC % Sodium Potassium Chloride Carbon Dioxide Anion Gap BUN Creatinine Estimated GFR (MDRD) Glucose Calcium Total Bilirubin AST ALT Alkaline Phosphatase Total Protein Albumin Globulin Albumin/Globulin Ratio Lipase Urine Color Urine Clarity Urine pH Ur Specific [place] Urine Protein Urine Glucose (UA) Urine Ketones Urine Occult Blood Urine Nitrite Urine Bilirubin Urine Urobilinogen Ur Leukocyte Esterase Ur Microscopic Review Urine Culture Comments Urine HCG, Qual NEGATIVE - Rads (name of study) RUQ US Radiology: Prelim report reviewed, See rad report PD MEDICAL DECISION MAKING - ED course Complexity details: reviewed old records, reviewed results, re-evaluated patient, considered differential, d/w patient ED course: Presents with upper abdominal pain similar to previous biliary colic.Blood tests are without significant abnormality (minimally elevated lipase but normal LFTs, normal WBC), and US is without significant change from previous and without fin dings to suggest cholecystitis. She had significant symptom relief with IV zofran, toradol, and dilaudid; did not require repeat doses. Results reviewed with patient, return precautions discussed. She is in NAD at time of reevaluation and is comfortable with d/c home I am prescribing a short course of short-acting opioid pain medication for this patient. 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 I have discussed that the opioids are for short term therapy only, and will not be refilled from the ED. Departure - Departure Disposition: Home, Self Care Clinical Impression: Biliary colic Condition: Good Instructions: ED Gallstone W Biliary Colic Follow-Up: LUCINDA CORREA MD [Primary Care Provider] - Prescriptions: Oxycodone HCl/Acetaminophen [Percocet 5-325 mg Tablet] 1 - 2 each PO Q6H PRN #14 tablet PRN Reason: pain Ondansetron Odt [Zofran] 4 mg TL Q6H PRN #10 tablet PRN Reason: Nausea / Vomiting Comments: Follow up with your surgeon. Prescriptions for oxycodone/acetaminophen (opioid pain medication) and ondansetron (anti-nausea medication) have been electronically submitted to the [facility] pharmacy in [place]. I am prescribing a short course of narcotic pain medication for you. These are potentially dangerous and addictive medications that should be used carefully. These medications may constipate you. Take an nwlz-gmc-fotxock stool softener (docusate) twice daily with plenty of water while taking these medications. If you go 24 hours without a bowel movement, take [id number] miralax, per package instructions. Do not drink or drive while taking these medications. If you received narcotic or sedating medications while in the emergency department, do not drive for 24 hours. Store this medication in a safe, secure place and out of reach of children. It is a violation of federal law to give or sell this medication to another person or to use in a manner other than prescribed. The ED will not refill narcotic prescriptions, including prescriptions lost or stolen. To dispose of unwanted medications: 1. [facility] at [address] in [place] has a medication drop box. They accept prescription medications (in pill form) Friday through Friday 9:00 a.m. to 5:00 p.m. 2. [facility] accepts prescription medications (in pill form only) for disposal year round. Call for more information. 3. Contact the [facility] for the next [facility] sponsored prescription drug collection event. , [phone], or [phone]; Discharge Date/Time: 01/19/21 04:53
[2021-01-19] MEDS ORDERED: HYDROmorphone 1 MG/ML CARPUJECT IVP STA (02:17)
[2021-01-19] MEDS ORDERED: KETOROLAC 30 MG/ML VIAL IVP STA (02:17)
[2021-01-19] MEDS ORDERED: ONDANSETRON 4 MG/2 ML VIAL IVP STA (02:19)
[2021-01-19 02:21] LABS: BASOPHILS # (AUTO) 0.1 10^3/uL (0.0-0.1); BASOPHILS % (AUTO) 1.1 %; EOSINOPHILS # (AUTO) 0.2 10^3/uL (0.0-0.7); EOSINOPHILS % (AUTO) 2.2 %; HCT - HEMATOCRIT 35.4 % (37.0-47.0); HGB - HEMOGLOBIN 11.6 g/dL (12.0-16.0); LYMPHOCYTES # (AUTO) 4.3 10^3/uL (1.5-3.5); LYMPHOCYTES % (AUTO) 56.6 %; MEAN CORPUSCULAR HEMOGLOBIN 30.9 pg (27.0-31.0); MEAN CORPUSCULAR HGB CONC 32.8 g/dL (32.0-36.0); MEAN CORPUSCULAR VOLUME 94.4 fL (81.0-99.0); MONOCYTES # (AUTO) 0.3 10^3/uL (0.0-1.0); MONOCYTES % (AUTO) 4.5 %; NEUTROPHILS # (AUTO) 2.7 10^3/uL (1.5-6.6); NEUTROPHILS % (AUTO) 35.3 %; PLT - PLATELET COUNT 257 10^3/uL (130-450); RED BLOOD COUNT 3.75 10^6/uL (4.20-5.40); RED CELL DISTRIBUTION WIDTH 11.8 % (12.0-15.0); WHITE BLOOD COUNT 7.6 x10^3/uL (4.8-10.8)
[2021-01-19] MEDS ORDERED: ONDANSETRON 4 MG/2 ML VIAL ONE (02:27)
[2021-01-19 02:31] LABS: ALBUMIN 4.6 g/dL (3.2-5.5); ALBUMIN/GLOBULIN RATIO 1.1 (1.0-2.2); BILIRUBIN,TOTAL 0.6 mg/dL (0.2-1.0); CALCIUM 9.7 mg/dL (8.5-10.3); POTASSIUM 3.4 mmol/L (3.5-5.0); TOTAL PROTEIN 8.6 g/dL (6.7-8.2)
[2021-01-19 03:44] LABS: BILIRUBIN,URINE NEGATIVE (NEGATIVE); GLUCOSE, URINE (UA) NEGATIVE (NEGATIVE); KETONES,URINE (UA) NEGATIVE (NEGATIVE); LEUKOCYTE ESTERASE, URINE NEGATIVE (NEGATIVE); NITRITE,URINE NEGATIVE (NEGATIVE); OCCULT BLOOD,URINE NEGATIVE (NEGATIVE); PH,URINE 6.5 PH (5.0-7.5); PROTEIN,URINE NEGATIVE (NEGATIVE); UROBILINOGEN,URINE 0.2 (NORMAL) E.U./dL (NORMAL)
[2021-01-19 03:45] LABS: CLARITY,URINE CLEAR (CLEAR); HCG UR QUAL NEGATIVE
[2021-01-19] MEDS ORDERED: oxyCODONE/ACET 5/325 Prepack 4 PO STA (04:31)
[2021-01-19] MEDS ORDERED: ONDANSETRON ODT 4 MG Prepack 2 TL STA (04:32)
[2021-01-19 04:53] VITALS: BP 121/84
--- NOTE | 2021-01-19 09:29 | Ultrasound Report ---
PROCEDURE: Abdomen Limited INDICATIONS: abdominal pain TECHNIQUE: Real-time scanning was performed of the abdominal and retroperitoneal organs, with image documentatio n. COMPARISON: None. FINDINGS: Liver: Liver is normal in size and increased in echotexture. Gallbladder: Gallbladder demonstrates multiple areas of increased echogenicity. Wall thickness is wit hin normal limits measuring 2.7 mm. Biliary ducts: Intrahepatic bile ducts are non-dilated. Extrahepatic bile duct caliber measures 3.9 mm. Normal is 6-7 mm or less in diameter, or 10 mm or less post-cholecystectomy. Pancreas: Visualized portions of the pancreas are sonographically normal. Kidneys: Right kidney measures 11.2 cm long. No hydronephrosis or nephrolithiasis. No solid masses . IVC: Intrahepatic inferior vena cava is patent. Miscellaneous: No free abdominal fluid. IMPRESSION: Cholelithiasis without imaging evidence of cholecystitis. Hepatic steatosis. The above findings are concordant with preliminary report. Reviewed by: Fidelia Zuniga MD on 01/19/2021 9:28 AM PST Approved by: Fidelia Zuniga MD on 01/19/2021 9:28 AM PST Station ID: [id number]
== END 2021-01-19 04:53 | disposition home or self-care (01) ==
LOC: ED 01:52
DX: K80.50 Calculus of bile duct without cholangitis or cholecystitis without obstruction (principal)
CPT/HCPCS: 36415; 76705; 80053; 81003; 81025; 83690; 85025; 96374; 96375; 99284; J1170; 81001; 87086

== ENCOUNTER 2021-05-10 10:50 | Day surgery (SDC) | payer OTHER ==
[~2021-05-10 10:50] MED LIST: BUPIVACAINE 0.25% PF 30 ML VIAL ONE; CEFAZOLIN SODIUM IN 0.9 % NACL 2 GM/50 ML BAG IV ONE
[2021-05-10 11:12] LABS: HCG UR QUAL NEGATIVE
[2021-05-10] MEDS ORDERED: LACTATED RINGERS 1,000 ML IV ONE ×2 (11:15→13:48)
--- NOTE | 2021-05-10 12:02 | ANESTHESIA ---
Pre-Anesthesia VS, & Labs - Diagnosis biliary colic, chronic cholecystitis - Procedure laparoscopic cholecystectomy Vital Signs: Temp Pulse Resp BP Pulse Ox 36.4 C L 67 18 124/94 H 97 05/10/21 11:15 05/10/21 11:15 05/10/21 11:15 05/10/21 11:15 05/10/21 11:15 Height: 5 ft 9 in Weight (kg): 92.2 kg Body Mass Index: 29.9 BMI Classification: Overweight - NPO >8 hours - Is Patient ?: No - Lab Results Lab results reviewed: Yes Home Medications and Allergies Home Medications: Ambulatory Orders Norethindrone 0.35 mg PO DAILY 05/01/21 Norethindrone 0.35 mg PO DAILY 05/01/21 Allergies/Adverse Reactions: Allergies Allergy/AdvReac Type Severity Reaction Status Date / Time No Known Drug Allergies Allergy Verified 05/09/21 10:09 Anes History & Medical History - Anesthetic History Anesthesia Complications: reports: No previous complications Family history of Anesthesia Complications: Denies Family history of Malignant Hyperthermia: Denies - Medical History Cardiovascular: reports: None Pulmonary: reports: Asthma Gastrointestinal: reports: GERD, Cholelithiasis Urinary: reports: None Musculoskeletal: reports: Osteoarthritis Skin: reports: Eczema Smoking Status: Never smoker History of Cancer?: No Exam General: Alert, Oriented x3, Cooperative Dental: WNL Mouth Openin Fingerbreadth Neck Mobility: Normal Mallampati classification: II Thyromental Distance: 4-6 cm Respiratory: Lungs clear, Normal breath sounds, No respiratory distress Cardiovascular: Regular rate Neurological: Normal speech Mental/Cognitive Status: Alert/Oriented X3, Normal for patient Cognitive Status: Within normal limits Plan Anesthesia Type: General Consent for Procedure(s) Verified and Reviewed: Yes Code Status: Attempt Resuscitation ASA classification: 2-Mild systemic disease Is this case an emergency?: No
[2021-05-10] MEDS ORDERED: PROPOFOL 200 MG/20 ML VIAL IVP ONE (12:04)
[2021-05-10] MEDS ORDERED: ROCURONIUM 50 MG/5 ML VIAL ONE (12:06)
[2021-05-10] MEDS ORDERED: MIDAZOLAM 2 MG/2 ML VIAL ONE (12:06)
[2021-05-10] MEDS ORDERED: fentaNYL 100 MCG/2 ML VIAL ONE ×3 (12:06→14:30)
[2021-05-10] MEDS ORDERED: LIDOCAINE-MPF 2% 5 ML VIAL ONE (12:06)
--- NOTE | 2021-05-10 12:19 | HISTORY & PHYSICAL EXAMINATION ---
Chief Complaint - Chief Complaint Chief Complaint: right upper quadrant pain History of Present Illness - History Obtained From Records Reviewed: yes History obtained from: pt Exam Limitations: none - History of Present Illness HPI Comment/Other: Daily right upper quadrant pain. Gallstones. Chronic cholecystitis. Normal lfts History - Past Medical History Cardiovascular: reports: None Respiratory: reports: Asthma GI: reports: GERD, Cholelithiasis : reports: None HEENT: reports: None Psych: reports: None Musculoskeletal: reports: Osteoarthritis Derm: reports: Eczema MRSA Hx?: No - POLST Patient has POLST: No Meds/Allgy - Home Medications Home Medications: Ambulatory Orders Medication Instructions Recorded Confirmed Norethindrone 0.35 mg PO DAILY 05/01/21 05/09/21 - Allergies Allergies/Adverse Reactions: Allergies Allergy/AdvReac Type Severity Reaction Status Date / Time No Known Drug Allergies Allergy Verified 05/09/21 10:09 Review of Systems - Other Findings Other Findings: 10 pt ros as above otherwise unremarkable Exam - Vital Signs Reviewed Vital Signs: Yes Vital Signs: Vital Signs x48h Temp Pulse Resp BP Pulse Ox 05/10/21 11:15 36.4 C L 67 18 124/94 H 97 - Physical Exam General Appearance: positive: No acute distress, Alert Eyes Bilateral: positive: PERRL, EOMI, No scleral icterus ENT: positive: No signs of dehydration Neck: positive: No JVD Respiratory: positive: Breath sounds nml Cardiovascular: positive: Regular rate & rhythm Abdomen: positive: Non-tender, No distention Neurologic/Psychiatric: positive: Oriented x3 Conclusion/Plan - Problem List (1) Chronic cholecystitis Conclusion/Plan: plan tonya deloris. parq held and consent obtained - Lab Results Lab results reviewed: Yes
[2021-05-10] MEDS ORDERED: ONDANSETRON 4 MG/2 ML VIAL ONE (12:45)
[2021-05-10] MEDS ORDERED: DEXAMETHASONE 4 MG/ML VIAL ONE (12:45)
[2021-05-10] MEDS ORDERED: KETOROLAC 30 MG/ML VIAL ONE (13:22)
[2021-05-10] MEDS ORDERED: SUGAMMADEX 200 MG/2 ML VIAL IVP ONE (13:27)
[2021-05-10] MEDS ORDERED: BUPIVACAINE 0.25% PF 30 ML VIAL SUBQ ONE (13:30)
[2021-05-10] MEDS ORDERED: ONDANSETRON 4 MG/2 ML VIAL IVP PRN ×2 (13:45→14:00)
--- NOTE | 2021-05-10 13:52 | OPERATIVE REPORT ---
Operative Report - General Procedure Date: 05/10/21 Planned Procedure: lap deloris Pre-Op Diagnosis: chronic cholecystitis Procedure Performed: lap deloris Post Op Diagnosis: chronic cholecystitis - Procedure Note Primary Surgeon: leonel barkley Anesthesia Technique: General ET tube, Local Pathology: gallbladder Estimated Blood Loss (mL): 2 Indications: chronic cholecystitis and daily pain Findings: as above. Complications: none - Other Other Information/Narrative: The patient was properly identified, brought to the operating room and placed in supine position. Sequential compression devices were placed. General endotracheal anesthesia was induced. The patient was prepped and draped in a sterile fashion and given preoperative antibiotics. Local anesthetic was given to incision areas. An incision was made in the periumbilical area. Dissection proceeded down to fascia. The fascia was incised lifted upwards and abdomen entered with a Veress needle. CO2 was insufflated to a pressure of 15. An 11 mm trocar followed by a 30 degree scope was placed. There was no evidence of injury from Veress needle or trocar placement. Under direct vision 2 5 mm trochars were placed in the right upper quadrant and an 11 mm trocar was placed in the epigastrium. Body of the gallbladder was retracted anterior. Lateral attachments were partially taken down further mobilizing the gallbladder more anterior and away from the duodenum. The infundibulum of the gallbladder was then retracted right lateral and caudad. With minimal use of cautery a large bare cystic plate area or window was carefully created. The cystic duct was inspected from right lateral and left lateral positions. [] The cystic duct was then clipped at the gallbladder and 3 times slightly proximal and sharply divided. The cystic artery was clipped at the gallbladder and then 2 times slightly proximal and sharply divided. The gallbladder was mobilized off from the bed of the liver with hook cautery. The gallbladder was placed in Endo Catch bag and brought out through the epigastric trocar site. Hemostasis was assured. Trochars were removed under direct vision. Fascia at the larger trocar sites was closed with [id number] are running 0 Vicryl suture. Subcutaneous tissue was irrigated and skin closed with interrupted 4-0 Monocryl. Dressings were applied. Patient tolerated the procedure well was awakened and brought to recovery in good condition.
[2021-05-10] MEDS ORDERED: METOCLOPRAMIDE 10 MG/2 ML VIAL IVP PRN (14:00)
[2021-05-10] MEDS ORDERED: MORPHINE 2 MG/ML CARPUJECT IVP PRN (14:00)
[2021-05-10] MEDS ORDERED: HYDROmorphone 0.5 MG/0.5 ML SYRINGE IVP PRN (14:00)
[2021-05-10] MEDS ORDERED: LACTATED RINGERS 1,000 ML IV SCH (14:00)
[2021-05-10] MEDS ORDERED: ATROPINE ABBOJECT 1 MG/10 ML SYRINGE IVP PRN (14:00)
[2021-05-10] MEDS ORDERED: fentaNYL 100 MCG/2 ML VIAL IVP PRN (14:00)
[2021-05-10] MEDS ORDERED: NALOXONE 0.4 MG/ML VIAL IVP PRN (14:00)
[2021-05-10] MEDS ORDERED: ePHEDrine 50 MG/ML VIAL IVP PRN (14:00)
[2021-05-10 16:01] VITALS: BP 131/79
--- NOTE | 2021-05-10 17:36 | ANESTHESIA POST OP EVALUATION ---
Anesthesia Post Eval - Post Anesthesia Eval Vitals: Last Vital Signs Temp 36.5 C 05/10/21 15:55 Pulse 68 05/10/21 15:55 Resp 16 05/10/21 15:55 BP 131/79 H 05/10/21 15:55 Pulse Ox 99 05/10/21 15:55 CV Function Including HR & BP: Stable Pain Control: Satisfactory Nausea & Vomiting: Negative Mental Status: Baseline Respiratory Status: Airway Patent Hydration Status: Satisfactory Anesthesia Complications: None
== END 2021-05-10 10:51 | disposition home or self-care (01) ==
LOC: SDS 10:50
PROVIDERS: ATTEND Surgery
PROC: 0FT44ZZ Resection of Gallbladder, Percutaneous Endoscopic Approach (ICD-10-PCS; principal; 2021-05-10 12:00)
DX: K80.10 Calculus of gallbladder with chronic cholecystitis without obstruction (principal)
CPT/HCPCS: 47562; 81025; J0690; J7120

== ENCOUNTER 2021-08-08 21:51 | Emergency (ER) | payer OTHER ==
--- NOTE | 2021-08-08 22:43 | ED Physician Documentation ---
PD HPI FEMALE - Stated complaint Stated Complaint: FEMALE /RT SIDE ABD PX - Chief complaint Chief Complaint: UTI - History obtained from History obtained from: Patient - History of Present Illness Timing - onset: How many days ago (3) Timing - details: Intermittant Associated symptoms: Dysuria. No: Fever, Abdominal pain, Pelvic pain, Vaginal pain, Vaginal bleeding, Vaginal discharge, Genital sore/lesion, Urinary frequency, Hematuria Contributing factors: No: Recently seen: Not recently seen - Additional information Additional information: c/o 3 days of burning dysuria. Denies h/o similar symptom. Burning discomfort is only when urinating. She denies abdominal pain, pelvic pain, vaginal discharge. Review of Systems Constitutional: denies: Fever GI: denies: Abdominal Pain : reports: Dysuria. denies: Frequency, Discharge, Vaginal bleeding, Now EGA Musculoskeletal: denies: Back pain PD PAST MEDICAL HISTORY - Past Medical History Cardiovascular: None Respiratory: Asthma GI: GERD, Cholelithiasis : None HEENT: None Psych: None Musculoskeletal: Osteoarthritis Derm: Eczema - Past Surgical History Past Surgical History: No - Present Medications Home Medications: Ambulatory Orders Medication Instructions Recorded Confirmed Norethindrone 0.35 mg PO DAILY 05/01/21 05/09/21 HYDROcod/ACETAM 5/325 [[place] 5/325] 1 each PO Q6H PRN #30 tablet 05/10/21 Ondansetron Odt [Zofran Odt] 4 mg PO Q6H PRN #15 tablet 05/10/21 - Allergies Allergies/Adverse Reactions: Allergies Allergy/AdvReac Type Severity Reaction Status Date / Time No Known Drug Allergies Allergy Verified 08/08/21 22:15 - Social History Does the pt smoke?: No Smoking Status: Never smoker Does the pt drink ETOH?: No Does the pt have substance abuse?: No - Immunizations Immunizations are current?: Yes - POLST Patient has POLST: No PD ED PE NORMAL - Vitals Vital signs reviewed: Yes - General General: Alert and oriented X 3, No acute distress, Well developed/nourished - Abdomen Abdomen: Soft, Non tender - Back Back: No CVA TTP Results - Vitals Vitals: Vital Signs - 24 hr 08/09/21 01:01 Temperature 37.1 C Heart Rate 68 Respiratory 16 Rate Blood Pressure 119/99 H O2 Saturation 99 Oxygen O2 Source Room air - Labs Labs: Laboratory Tests 08/08/21 22:38 Urine Color YELLOW Urine Clarity CLEAR Urine pH 6.0 Ur Specific [place] >=1.030 H Urine Protein TRACE Urine Glucose (UA) NEGATIVE Urine Ketones NEGATIVE Urine Occult Blood TRACE-INTA Urine Nitrite NEGATIVE Urine Bilirubin NEGATIVE Urine Urobilinogen 0.2 (NORMAL) Ur Leukocyte Esterase NEGATIVE Ur Microscopic Review NOT INDICATED Urine Culture Comments NOT INDICATED Urine HCG, Qual NEGATIVE PD MEDICAL DECISION MAKING - ED course Complexity details: reviewed results, re-evaluated patient, considered differential, d/w patient ED course: c/o burning dysuria x 3 days. UA is normal. Unremarkable abdominal exam. urine HCG negative. no further testing indicated at this time. Given pyridium and return precautions discussed Departure - Departure Disposition: 01 Home, Self Care Clinical Impression: Dysuria Condition: Good Instructions: ED Dysuria Uncertain Cause Comments: The cause of your symptoms is not apparent at this time; your urinalysis was normal and the urine test is negative. You were given a dose of pyridium in the ER; this often helps with burning discomfort associated with urination. It is available over the counter, as well (one of the common brand names is Azo). However, you should not use this medication more than two days, so that you can assess whether the symptoms are worsening or not. Discharge Date/Time: 08/09/21 01:08
[2021-08-08 22:49] LABS: BILIRUBIN,URINE NEGATIVE (NEGATIVE); GLUCOSE, URINE (UA) NEGATIVE (NEGATIVE); KETONES,URINE (UA) NEGATIVE (NEGATIVE); LEUKOCYTE ESTERASE, URINE NEGATIVE (NEGATIVE); NITRITE,URINE NEGATIVE (NEGATIVE); OCCULT BLOOD,URINE TRACE-INTA (NEGATIVE); PROTEIN,URINE TRACE mg/dL (NEGATIVE); UROBILINOGEN,URINE 0.2 (NORMAL) E.U./dL (NORMAL)
[2021-08-08 22:53] LABS: CLARITY,URINE CLEAR (CLEAR); HCG UR QUAL NEGATIVE
[2021-08-09] MEDS ORDERED: PHENAZOPYRIDINE 100 MG TABLET PO STA (00:52)
[2021-08-09 01:02] VITALS: BP 119/99
== END 2021-08-09 01:08 | disposition home or self-care (01) ==
LOC: ED 21:51
DX: R30.0 Dysuria (principal)
CPT/HCPCS: 81003; 81025; 99282; 99283; A9270; 81001; 87086

== ENCOUNTER 2021-11-12 16:34 | Emergency (ER) | payer OTHER ==
[2021-11-12] MEDS ORDERED: KETOROLAC 60 MG/2 ML VIAL IM STA (18:30)
--- NOTE | 2021-11-12 18:31 | XRAY Report ---
PROCEDURE: Chest 2 View X-Ray INDICATIONS: rib pain TECHNIQUE: 2 view(s) of the chest. COMPARISON: 11/15/2020 FINDINGS: Surgical changes and devices: None. Lungs and pleura: No pleural effusions or pneumothorax. Lungs are clear. Mediastinum: Mediastinal contours are normal. Heart size is normal. Bones and chest wall: No displaced abnormality. IMPRESSION: No acute radiographic abnormality. Reviewed by: Elvin Romo MD on 11/12/2021 6:30 PM PDT Approved by: Elvin Romo MD on 11/12/2021 6:30 PM PDT Station ID: [id number]
--- NOTE | 2021-11-12 18:32 | ED Physician Documentation ---
History of Present Illness - Stated complaint Stated Complaint: LT RIB/ARM PX - Chief complaint Chief Complaint: General - Additonal information Additional information: 41-year-old female presents emergency department for evaluation of about 1 week left lower lateral chest wall pain. She describes it as a burning sensation. It is intermittent and she is not able to tell when it will come and go though she has noticed that it will occur if she is standing for too long in 1 position. She is denying chest pain otherwise, no dyspnea no cough or fevers. She is not on OCP. No unilateral leg swelling history of DVT or cancer. She is taking no prescribed medications. Review of Systems Constitutional: reports: Reviewed and negative Ears: reports: Reviewed and negative Nose: reports: Reviewed and negative Throat: reports: Reviewed and negative Cardiac: reports: Other (Left lateral chest wall pain) Respiratory: reports: Reviewed and negative GI: reports: Reviewed and negative : reports: Reviewed and negative PD PAST MEDICAL HISTORY - Past Medical History Cardiovascular: None Respiratory: Asthma GI: GERD, Cholelithiasis : None HEENT: None Psych: None Musculoskeletal: Osteoarthritis Derm: Eczema - Past Surgical History Past Surgical History: No - Present Medications Home Medications: Ambulatory Orders Medication Instructions Recorded Confirmed Norethindrone 0.35 mg PO DAILY 05/01/21 05/09/21 HYDROcod/ACETAM 5/325 [[place] 5/325] 1 each PO Q6H PRN #30 tablet 05/10/21 Ondansetron Odt [Zofran Odt] 4 mg PO Q6H PRN #15 tablet 05/10/21 methocarbamoL [Methocarbamol] 750 mg PO BID PRN #15 tablet 11/12/21 - Allergies Allergies/Adverse Reactions: Allergies Allergy/AdvReac Type Severity Reaction Status Date / Time No Known Drug Allergies Allergy Verified 11/12/21 16:52 - Social History Does the pt smoke?: No Smoking Status: Never smoker Does the pt drink ETOH?: No Does the pt have substance abuse?: No - Immunizations Immunizations are current?: Yes - POLST Patient has POLST: No PD ED PE NORMAL - General General: Alert and oriented X 3, No acute distress, Well developed/nourished - HEENT HEENT: Atraumatic, Moist mucous membranes - Neck Neck: Supple, no meningeal sign, No adenopathy - Cardiac Cardiac: RRR, No murmur - Respiratory Respiratory: No respiratory distress, Clear bilaterally - Abdomen Abdomen: Normal bowel sounds, Soft, Non tender - Back Back: No CVA TTP, No spinal TTP - Derm Derm: Normal color, Warm and dry, No rash - Extremities Extremities: No deformity, No tenderness to palpate, Normal ROM s pain - Neuro Neuro: Alert and oriented X 3, counter pocket sewer 2-12 intact Eye Opening: Spontaneous Motor: Obeys Commands Verbal: Oriented GCS Score: 15 Results - Vitals Vitals: Vital Signs - 24 hr 11/12/21 11/12/21 16:42 19:15 Temperature 36 C L 36.3 C L Heart Rate 82 79 Respiratory 14 15 Rate Blood Pressure 138/98 H 133/88 H O2 Saturation 97 98 Oxygen O2 Source Room air - EKG (time done) 1647 Rate: Rate (enter#) (72) Rhythm: NSR [place]: Normal Intervals: Normal MI QRS: Normal Ischemia: Non specific changes Compare to prior EKG: Old EKG unavailable Computer interpretation: Agree with computer - Rads (name of study) 2v cxr Radiology: Final report received (No acute radiographic abnormality) PD MEDICAL DECISION MAKING - ED course Complexity details: reviewed results, re-evaluated patient, considered differential, d/w patient ED course: 41-year-old female presents emergency department for evaluation of left lateral rib wall pain that began a number of days ago. She describes it as a burning sensation. However there is no rash to suggest shingles. It is often worse when standing in 1 position for short period of time. EKG was nonrevealing. Two-view chest x-ray was also unremarkable. I was able to elicit minimal tend erness with palpation. I suspect that she has rib wall strain. She carries around a 40 pound toddler quite often. She was given injection of Toradol and had moderate relief of symptoms. I will make the recommendation for ibuprofen and methocarbamol at home. We will have patient follow-up with PCP. Otherwise emergent return precautions discussed Departure - Departure Disposition: Home, Self Care Clinical Impression: Left-sided chest wall pain Condition: Stable Record reviewed to determine appropriate education?: Yes Instructions: ED Strain Chest Wall Ch Prescriptions: methocarbamoL [Methocarbamol] 750 mg PO BID PRN #15 tablet PRN Reason: Spasms Comments: Tamsha you are seen today in the emergency department for pain on the left side of your chest and rib wall. You describe a burning sensation especially if you have been standing for too long. As we discussed at the bedside I suspect that you may have some chest wall strain simply because your carrying around a 40 pound baby quite often. We did give you an injection of Toradol here in the emergency department which seems to have improved your symptoms. I would like you to use ibuprofen 600 mg with food 2-3 times a day. I have sent a prescription for a limited amount of a muscle relaxer methocarbamol to the [facility] in [place]. I would expect with this treatment that your symptoms are feeling much better over the next 7 to 10 days. Please discuss this ED visit with your primary care provider. Reasons to return to the emergency department would include fevers, difficulty breathing any fainting episodes or leg swelling.
[2021-11-12 19:16] VITALS: BP 133/88
== END 2021-11-12 19:29 | disposition home or self-care (01) ==
LOC: ED 16:34
DX: R07.89 Other chest pain (principal); K21.9 Gastro-esophageal reflux disease without esophagitis
CPT/HCPCS: 93005; 96372; 99282; 99283

== ENCOUNTER 2021-11-28 13:44 | Outpatient (CLI) | payer OTHER ==
--- NOTE | 2021-11-29 10:56 | MRI Report ---
PROCEDURE: KNEE WO - RT INDICATIONS: PAIN IN RIGHT KNEE TECHNIQUE: Noncontrast sagittal PD fast spin echo and T2 fast spin echo with fat saturation, sagittal 3-D spoile d GE with fat saturation; coronal T1 spin echo and PD fast spin echo with fat saturation, and axial P D fast spin echo with fat saturation through the knee. COMPARISON: None. FINDINGS: Image quality: Excellent. Anterior cruciate ligament: Intact. Posterior cruciate ligament: Intact. Medial collateral ligament: Intact. Lateral collateral ligament: Intact. Medial meniscus: Intact. Lateral meniscus: Intact. Medial and lateral tendons: The semimembranosus tendon insertions appear intact. Visualized portion s of the pes anserinus tendons appear normal. The popliteus tendon appears intact. Iliotibial band appears normal. Anterior structures: Mild patella sophie. Mild proximal patellar tendinosis. Longitudinal linear hyper intense signal within the central patellar tendon is of uncertain etiology or significance. The dista l quadriceps tendon is intact. There is no patellar subluxation. No femoral trochlear dysplasia or ve ntral trochlear prominence. Mild edema at the superolateral aspect of the infrapatellar fat pad. Bones: No acute trabecular bone injury or fracture. Medial femorotibial cartilage: There is mild cartilage irregularity at the central to posterior weig htbearing portion of the medial femoral condyle. Lateral femorotibial cartilage: No focal cartilage defect. Patellofemoral cartilage: No focal cartilage defect. Soft tissues: There is a small joint effusion. There is a small medial popliteal cyst. The musculat ure surrounding the knee is normal in bulk. IMPRESSION: 1.Mild patella sophie and proximal patellar tendinosis. 2.Small amount of edema in Hoffa's fat pad can be seen in the setting of lateral femoral condyle-cadet llar tendon friction syndrome. 3.Cruciate collateral ligaments are intact. No acute trabecular bone injury. No meniscal tear is seen . 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 5.Small joint effusion. Small medial popliteal cyst. Reviewed by: Joby Mcconnell MD on 11/29/2021 10:55 AM PDT Approved by: Joby Mcconnell MD on 11/29/2021 10:55 AM PDT Station ID: [id number]
== END 2021-11-28 13:45 | disposition home or self-care (01) ==
LOC: DI 13:44
PROVIDERS: ATTEND Family Medicine
DX: M94.261 Chondromalacia, right knee (principal); M25.461 Effusion, right knee; M71.21 Synovial cyst of popliteal space [Baker], right knee; M67.863 Other specified disorders of tendon, right knee

== ENCOUNTER 2021-12-20 07:14 | Emergency (ER) | payer OTHER ==
[2021-12-20 08:23] LABS: BASOPHILS # (AUTO) 0.1 10^3/uL (0.0-0.1); BASOPHILS % (AUTO) 0.8 %; EOSINOPHILS # (AUTO) 0.1 10^3/uL (0.0-0.7); EOSINOPHILS % (AUTO) 1.5 %; HCT - HEMATOCRIT 36.8 % (37.0-47.0); HGB - HEMOGLOBIN 11.7 g/dL (12.0-16.0); LYMPHOCYTES # (AUTO) 1.9 10^3/uL (1.5-3.5); LYMPHOCYTES % (AUTO) 25.9 %; MEAN CORPUSCULAR HEMOGLOBIN 29.6 pg (27.0-31.0); MEAN CORPUSCULAR HGB CONC 31.8 g/dL (32.0-36.0); MEAN CORPUSCULAR VOLUME 93.2 fL (81.0-99.0); MEAN PLATELET VOLUME 8.6 fL (7.9-10.8); MONOCYTES # (AUTO) 0.4 10^3/uL (0.0-1.0); MONOCYTES % (AUTO) 4.9 %; NEUTROPHILS # (AUTO) 4.9 10^3/uL (1.5-6.6); NEUTROPHILS % (AUTO) 66.5 %; PLT - PLATELET COUNT 266 10^3/uL (130-450); RED BLOOD COUNT 3.95 10^6/uL (4.20-5.40); RED CELL DISTRIBUTION WIDTH 11.8 % (12.0-15.0); WHITE BLOOD COUNT 7.3 x10^3/uL (4.8-10.8)
[2021-12-20 08:35] LABS: ALBUMIN 4.6 g/dL (3.2-5.5); ALBUMIN/GLOBULIN RATIO 1.2 (1.0-2.2); BILIRUBIN,TOTAL 0.4 mg/dL (0.2-1.0); CALCIUM 9.4 mg/dL (8.5-10.3); CREATININE 0.8 mg/dL (0.4-1.0); POTASSIUM 3.6 mmol/L (3.5-5.0); TOTAL PROTEIN 8.4 g/dL (6.7-8.2)
[2021-12-20 08:51] LABS: BILIRUBIN,URINE NEGATIVE (NEGATIVE); GLUCOSE, URINE (UA) NEGATIVE (NEGATIVE); KETONES,URINE (UA) NEGATIVE (NEGATIVE); LEUKOCYTE ESTERASE, URINE MODERATE (NEGATIVE); NITRITE,URINE NEGATIVE (NEGATIVE); OCCULT BLOOD,URINE MODERATE (NEGATIVE); PROTEIN,URINE NEGATIVE (NEGATIVE); UROBILINOGEN,URINE 0.2 (NORMAL) E.U./dL (NORMAL)
[2021-12-20 09:00] LABS: CLARITY,URINE SL. CLOUDY (CLEAR); HCG UR QUAL NEGATIVE
[2021-12-20 09:08] LABS: BACTERIA,URINE Rare /HPF (None Seen); SQUAMOUS EPITHELIAL CELL,UR RARE Squamous (<= Few); WBC,URINE >25 /HPF (0-5)
[2021-12-20] MEDS ORDERED: PHENAZOPYRIDINE 100 MG TABLET PO STA (09:35)
[2021-12-20] MEDS ORDERED: cephALEXin 250 MG CAPSULE PO STA (09:35)
--- NOTE | 2021-12-20 09:38 | ED Physician Documentation ---
PD HPI FEMALE - Stated complaint Stated Complaint: BACK PX/FEMALE - Chief complaint Chief Complaint: Abd Pain - History obtained from History obtained from: Patient - Additional information Additional information: Patient is a 49-year-old female presenting for evaluation of dysuria that has been present since 17 December. It started after she had had intercourse with her . She reports a burning sensation at the very end of her urine stream. She then has had some mild pain to the right flank that is achy in nature since this morning which is improving. She denies radiation to the pain. No fever, no nausea or vomiting. Denies concerns for sexually transmitted infections or . Denies vaginal bleeding or discharge.Had similar symptoms a few months ago at which time she was evaluated in the ER. Review of Systems Constitutional: denies: Fever Nose: denies: Congestion Cardiac: denies: Chest pain / pressure Respiratory: denies: Dyspnea GI: denies: Abdominal Pain, Nausea, Vomiting : reports: Dysuria Musculoskeletal: reports: Back pain Neurologic: denies: Headache PD PAST MEDICAL HISTORY - Past Medical History Cardiovascular: None Respiratory: Asthma GI: GERD, Cholelithiasis : None HEENT: None Psych: None Musculoskeletal: Osteoarthritis Derm: Eczema - Past Surgical History Past Surgical History: No - Present Medications Home Medications: Ambulatory Orders Medication Instructions Recorded Confirmed Norethindrone 0.35 mg PO DAILY 05/01/21 05/09/21 HYDROcod/ACETAM 5/325 [[place] 5/325] 1 each PO Q6H PRN #30 tablet 05/10/21 Ondansetron Odt [Zofran Odt] 4 mg PO Q6H PRN #15 tablet 05/10/21 methocarbamoL [Methocarbamol] 750 mg PO BID PRN #15 tablet 11/12/21 Phenazopyridine HCl [Pyridium] 200 mg PO TID PRN #6 tablet 12/20/21 cephALEXin [Keflex] 500 mg PO BID #14 cap 12/20/21 - Allergies Allergies/Adverse Reactions: Allergies Allergy/AdvReac Type Severity Reaction Status Date / Time No Known Drug Allergies Allergy Verified 12/20/21 08:05 - Social History Does the pt smoke?: No Smoking Status: Never smoker Does the pt drink ETOH?: No Does the pt have substance abuse?: No - Immunizations Immunizations are current?: Yes - POLST Patient has POLST: No PD ED PE NORMAL - General General: Alert and oriented X 3, No acute distress, Well developed/nourished - HEENT HEENT: Atraumatic - Neck Neck: Supple, no meningeal sign - Cardiac Cardiac: RRR, Strong equal pulses - Respiratory Respiratory: No respiratory distress - Abdomen Abdomen: Soft, Non tender - Back Back: No CVA TTP - Derm Derm: Warm and dry - Extremities Extremities: No edema - Neuro Neuro: Normal speech Results - Vitals Vitals: Vital Signs - 24 hr 12/20/21 12/20/21 08:03 10:03 Temperature 36.7 C 36.7 C Heart Rate 86 77 Respiratory 16 18 Rate Blood Pressure 146/105 H 122/87 H O2 Saturation 100 100 Oxygen O2 Source Room air - Labs Labs: Laboratory Tests 12/20/21 12/20/21 12/20/21 08:06 08:17 08:17 WBC 7.3 RBC 3.95 L Hgb 11.7 L Hct 36.8 L MCV 93.2 MCH 29.6 MCHC 31.8 L RDW 11.8 L Plt Count 266 MPV 8.6 Neut # (Auto) 4.9 Lymph # (Auto) 1.9 [place] # (Auto) 0.4 Eos # (Auto) 0.1 Baso # (Auto) 0.1 Absolute Nucleated RBC 0.00 Nucleated RBC % 0.0 Sodium 135 Potassium 3.6 Chloride 99 L Carbon Dioxide 27 Anion Gap 9.0 BUN 13 Creatinine 0.8 Estimated GFR (MDRD) 96 Glucose 104 H Calcium 9.4 Total Bilirubin 0.4 AST 40 ALT 45 Alkaline Phosphatase 62 Total Protein 8.4 H Albumin 4.6 Globulin 3.8 Albumin/Globulin Ratio 1.2 Lipase 45 Urine Color LT. YELLOW Urine Clarity SL. CLOUDY Urine pH 6.0 Ur Specific [place] 1.010 Urine Protein NEGATIVE Urine Glucose (UA) NEGATIVE Urine Ketones NEGATIVE Urine Occult Blood MODERATE H Urine Nitrite NEGATIVE Urine Bilirubin NEGATIVE Urine Urobilinogen 0.2 (NORMAL) Ur Leukocyte Esterase MODERATE H Urine RBC 6-10 H Urine WBC >25 H Ur Squamous Epith Cells RARE Squamous Urine Bacteria Rare Ur Microscopic Review INDICATED Urine Culture Comments INDICATED Urine HCG, Qual NEGATIVE PD MEDICAL DECISION MAKING - ED course Complexity details: reviewed results, re-evaluated patient ED course: Patient with UTI symptoms for 3 days. Vital signs are stable and labs are reassuring. Urine does suggest infection. test is negative. Also reports having a right flank pain that has improved since this morning.Clinically she is well-appearing. Her flank pain is not migratory and she is not requiring any pain medications here to suggest a obstructive stone. We will start patient on antibiotics and urine culture is pending. Patient counseled on concerning symptoms to return for. Departure - Departure Disposition: 01 Home, Self Care Clinical Impression: Cystitis Condition: Stable Instructions: ED UTI Cystitis Female Prescriptions: cephALEXin [Keflex] 500 mg PO BID #14 cap Phenazopyridine HCl [Pyridium] 200 mg PO TID PRN #6 tablet PRN Reason: dysuria Comments: Your urine shows signs of an infection and I have started you on an antibiotic called Keflex which she will take for 1 week as well as a medication called Pyridium which will help with the burning discomfort but will turn your urine orange. Your lab work is otherwise reassuring. You have any worsening symptoms such as fever, increased pain or any new concerns please return to the ER. Discharge Date/Time: 12/20/21 10:03
[2021-12-20 10:04] VITALS: BP 122/87
== END 2021-12-20 10:03 | disposition home or self-care (01) ==
LOC: ED 07:14
DX: N30.90 Cystitis, unspecified without hematuria (principal); B96.89 Other specified bacterial agents as the cause of diseases classified elsewhere
CPT/HCPCS: 36415; 80053; 81001; 81025; 83690; 85025; 87077; 87086; 87181; 99282; 99283; A9270; 81003

== ENCOUNTER 2022-03-31 06:24 | Emergency (ER) | payer OTHER ==
[2022-03-31] MEDS ORDERED: IPRATROPIUM/ALBUTEROL 3 ML NEB INH STA (07:39)
--- NOTE | 2022-03-31 07:41 | ED Physician Documentation ---
PD HPI URI - Stated complaint Stated Complaint: COUGH,DIZZY - Chief complaint Chief Complaint: Resp - History obtained from History obtained from: Patient - History of Present Illness Timing - onset: How many months ago (2) Timing duration: Months (2) Pain level max: 0 Pain level now: 0 Associated symptoms: Nasal congestion, Rhinorrhea, Productive cough, Dyspnea (Wheezing). No: Fever, NVD, Unilateral edema Contributing factors: Sick contact (Children) - Additional information Additional information: 41-year-old female presents to the emergency department complaint of cough for the past 2 months. She has been seen by her PCP and was placed on Tessalon and guaifenesin. She states she is continuing to cough. She does have an inhaler and a history of asthma. She states that she has not been using her inhaler. Feels like she has increased wheezing and increased difficulty breathing. Productive of yellow phlegm. Denies any possibility of . Review of Systems Constitutional: denies: Fever, Chills Skin: denies: Rash Musculoskeletal: denies: Neck pain, Back pain Neurologic: denies: Headache PD PAST MEDICAL HISTORY - Past Medical History Past Medical History: Yes Cardiovascular: None Respiratory: Asthma GI: GERD, Cholelithiasis : None HEENT: None Psych: None Musculoskeletal: Osteoarthritis Derm: Eczema - Past Surgical History Past Surgical History: No - Present Medications Home Medications: Ambulatory Orders Medication Instructions Recorded Confirmed Cetirizine HCl/Pseudoephedrine 1 each PO BID PRN #30 tab 03/31/22 [Zyrtec-D Tablet] Codeine Phosphate/Guaifenesin 5 ml PO Q6H PRN #60 ml 03/31/22 [Guaifen-Codeine 100-10 mg/5 ml] predniSONE [Deltasone] 40 mg PO DAILY #10 tablet 03/31/22 - Allergies Allergies/Adverse Reactions: Allergies Allergy/AdvReac Type Severity Reaction Status Date / Time No Known Drug Allergies Allergy Verified 03/31/22 06:34 - Social History Does the pt smoke?: No Smoking Status: Never smoker Does the pt drink ETOH?: No Does the pt have substance abuse?: No - Immunizations Immunizations are current?: Yes - POLST Patient has POLST: No PD ED PE NORMAL - Vitals Vital signs reviewed: Yes - General General: Alert and oriented X 3, No acute distress - HEENT HEENT: Moist mucous membranes - Neck Neck: Supple, no meningeal sign - Cardiac Cardiac: RRR, Strong equal pulses - Respiratory Respiratory: No respiratory distress, Clear bilaterally - Abdomen Abdomen: Soft, Non tender, Non distended - Derm Derm: Warm and dry - Extremities Extremities: No edema - Neuro Neuro: Alert and oriented X 3 Results - Vitals Vitals: Vital Signs - 24 hr 03/31/22 03/31/22 03/31/22 06:35 06:37 07:08 Temperature 37.1 C Heart Rate 86 83 70 Respiratory 17 18 Rate Blood Pressure 141/100 H 127/99 H 117/88 H O2 Saturation 95 94 95 03/31/22 03/31/22 08:06 08:39 Temperature 36.8 C Heart Rate 78 78 Respiratory 20 18 Rate Blood Pressure 124/80 O2 Saturation 98 Oxygen O2 Source Room air - Labs Labs: Laboratory Tests 03/31/22 06:33 Nasal Adenovirus (PCR) NOT DETECTED Nasal B. parapertussis DNA (PCR) NOT DETECTED Nasal Coronavir 229E PCR NOT DETECTED Nasal Coronavir HKU1 PCR NOT DETECTED Nasal Coronavir NL63 PCR NOT DETECTED Nasal Coronavir OC43 PCR NOT DETECTED Nasal Enterovir/Rhinovir PCR DETECTED A Nasal Influenza B PCR NOT DETECTED Nasal Influenza A PCR NOT DETECTED Nasal Parainfluen 1 PCR NOT DETECTED Nasal Parainfluen 2 PCR NOT DETECTED Nasal Parainfluen 3 PCR NOT DETECTED Nasal Parainfluen 4 PCR NOT DETECTED Nasal RSV (PCR) NOT DETECTED Nasal B.pertussis DNA PCR NOT DETECTED Nasal C.pneumoniae (PCR) NOT DETECTED De Human Metapneumo PCR NOT DETECTED Nasal M.pneumoniae (PCR) NOT DETECTED Nasal SARS-CoV-2 (PCR) NOT DETECTED - Rads (name of study) cxr Radiology: Final report received, See rad report (no acute abnormality) PD Medical Decision Making - ED course Complexity details: reviewed results, re-evaluated patient, considered differential, d/w patient, d/w family ED course: Patient is well-appearing, nontoxic. Afebrile. No hypoxia. No respiratory distress. Mild wheezing. Resolved with DuoNeb treatment. Will place on steroids for home. Will place on cough medication and decongestants. No evidence of pneumonia on x-ray. Respiratory PCR is positive for rhinovirus. Patient counseled regarding signs and symptoms for which I believe and urgent re-evaluation would be necessary. Patient with good understanding of and agreement to plan and is comfortable going home at this time This document was made in part using voice recognition software. While efforts are made to proofread this document, sound alike and grammatical errors may occur. Departure - Departure Disposition: 01 Home, Self Care Clinical Impression: Rhinovirus Upper respiratory tract infection Qualifiers: URI type: unspecified URI Qualified Code(s): J06.9 - Acute upper respiratory infection, unspecified Condition: Good Instructions: ED Viral Syndrome Follow-Up: your,doctor in 1 week [Other] Prescriptions: predniSONE [Deltasone] 40 mg PO DAILY #10 tablet Codeine Phosphate/Guaifenesin [Guaifen-Codeine 100-10 mg/5 ml] 5 ml PO Q6H PRN #60 ml PRN Reason: Cough Cetirizine HCl/Pseudoephedrine [Zyrtec-D Tablet] 1 each PO BID PRN #30 tab PRN Reason: nasal congestion Comments: Your prescriptions were sent to [facility] in [place]. Please follow-up with your doctor for further care. Please return if you worsen. Your chest x-ray does not show any acute abnormalities today. There is no indication for antibiotics. You have tested positive for rhinovirus today Discharge Date/Time: 03/31/22 08:40
[2022-03-31 07:46] LABS: B. PARAPERTUSSIS- RESP PCR PAN NOT DETECTED; B. PERTUSSIS- RESP PCR PANEL NOT DETECTED; C. PNEUMONIAE- RESP PCR PANEL NOT DETECTED; CORONAVIRUS 229E-RESP PCR NOT DETECTED; CORONAVIRUS HKU1-RESP PCR NOT DETECTED; CORONAVIRUS NL63-RESP PCR NOT DETECTED; CORONAVIRUS OC43-RESP PCR NOT DETECTED; HUMAN METAPNEUMOVIRUS NOT DETECTED; INFLUENZA A- RESP PCR PANEL NOT DETECTED; INFLUENZA B - RESP PCR PANEL NOT DETECTED; M. PNEUMONIAE- RESP PCR PANEL NOT DETECTED; PARAINFLUENZA VIRUS 1 NOT DETECTED; PARAINFLUENZA VIRUS 2 NOT DETECTED; PARAINFLUENZA VIRUS 3 NOT DETECTED; PARAINFLUENZA VIRUS 4 NOT DETECTED; RHINOVIRUS/ENTEROVIRUS DETECTED; RSV- RESP PCR PANEL NOT DETECTED; SARS-CoV-2 -RESP PCR PANEL NOT DETECTED
--- NOTE | 2022-03-31 08:26 | XRAY Report ---
PROCEDURE: Chest 2 View X-Ray INDICATIONS: cough TECHNIQUE: 2 views of the chest were acquired. COMPARISON: Chest x-ray, 11/12/2021. FINDINGS: Surgical changes and devices: None. Lungs and pleura: No pleural effusions or pneumothorax. Lungs are clear. Mediastinum: Mediastinal contours are normal. Heart size is normal. Bones and chest wall: No suspicious bony abnormalities. Soft tissues appear unremarkable. IMPRESSION: No acute cardiopulmonary disease. Reviewed by: Olga Giang MD on 03/31/2022 8:25 AM PST Approved by: Olga Giang MD on 03/31/2022 8:25 AM [facility] Station ID: [id number]
[2022-03-31 08:40] VITALS: BP 124/80
== END 2022-03-31 08:40 | disposition home or self-care (01) ==
LOC: ED 06:24
DX: J06.9 Acute upper respiratory infection, unspecified (principal); B97.89 Other viral agents as the cause of diseases classified elsewhere; Z20.822 Contact with and (suspected) exposure to COVID-19
CPT/HCPCS: 87633; 94640; 99283; 99284

== ENCOUNTER 2022-06-02 04:34 | Emergency (ER) | payer OTHER ==
--- NOTE | 2022-06-02 07:18 | ED Physician Documentation ---
History of Present Illness - Stated complaint Stated Complaint: RT LEG PX - Chief complaint Chief Complaint: Ext Problem - History obtained from History obtained from: Patient - Additonal information Additional information: This is a very nice 41-year-old woman originally from [place] who presents with a complaint of right lower extremity pain. It is really more of a tingling than a pain. It is in the posterolateral right thigh. It tends to happen more when she has been sitting for long periods. On and off, last minutes to hours at a time. A few days ago her baby stepped on her right calf and she had right calf pain then but that has since resolved. Initially when asked if she has low back pain associated with this she replied no but then sometimes she says she feels like she has to pop her low back. No saddle anesthesia, incontinence, fevers. PD PAST MEDICAL HISTORY - Past Medical History Past Medical History: Yes Cardiovascular: None Respiratory: Asthma GI: GERD, Cholelithiasis : None HEENT: None Psych: None Musculoskeletal: Osteoarthritis Derm: Eczema - Past Surgical History Past Surgical History: Yes General: Cholecystectomy - Present Medications Home Medications: Ambulatory Orders Medication Instructions Recorded Confirmed Omeprazole Magnesium 20 mg PO DAILY 06/02/22 06/02/22 predniSONE [Deltasone] 20 mg PO [id number] #21 tab 06/02/22 - Allergies Allergies/Adverse Reactions: Allergies Allergy/AdvReac Type Severity Reaction Status Date / Time No Known Drug Allergies Allergy Verified 06/02/22 04:57 - Social History Does the pt smoke?: No Smoking Status: Never smoker Does the pt drink ETOH?: No Does the pt have substance abuse?: No - Immunizations Immunizations are current?: Yes - POLST Patient has POLST: No PD ED PE NORMAL - Vitals Vital signs reviewed: Yes - General General: Alert and oriented X 3, No acute distress - Back Back: No CVA TTP, No spinal TTP - Derm Derm: Normal color, Warm and dry - Extremities Extremities: Other (I am not able to elicit any tenderness anywhere in the right leg. Sensation is symmetric throughout the lower extremities. No spinal tenderness.) - Neuro Neuro: Alert and oriented X 3, Normal speech Results - Vitals Vitals: Vital Signs - 24 hr 06/02/22 06/02/22 04:40 07:39 Temperature 36.7 C 37.0 C Heart Rate 77 69 Respiratory 16 16 Rate Blood Pressure 136/97 H 122/82 H O2 Saturation 99 97 Oxygen O2 Source Room air - Rads (name of study) Right lower extremity DVT ultrasound was reported to be negative. Relevant Findings:: Prelim report reviewed PD Medical Decision Making - ED course ED course: 41-year-old woman with mostly a tingling in the left posterolateral thigh. Differential diagnosis includes DVT, which is probably the most important diagnosis to identify today among the differentials, but less likely clinically. It would also include meralgia paresthetica although her tingling is somewhat too posterior for that. Also lumbar radiculopathy. Departure - Departure Disposition: Home, Self Care Clinical Impression: Leg cramps, Numbness and tingling of right leg Condition: Good Record reviewed to determine appropriate education?: Yes Instructions: ED Paraesthesias Prescriptions: predniSONE [Deltasone] 20 mg PO [id number] #21 tab Comments: The ultrasound of your leg shows no DVT. This could be referred pain from a pinched nerve in your back. For that we are going to try some anti- inflammatories to see if it is helpful. Follow-up with your primary care physician next available appointment. Return for new or worsening symptoms.
[2022-06-02 07:39] VITALS: BP 122/82
--- NOTE | 2022-06-02 11:16 | Ultrasound Report ---
PROCEDURE: Duplex Ext Veins Right INDICATIONS: RLE pain, atraumatic TECHNIQUE: Real-time imaging, as well as color and pulse Doppler interrogation, were performed of the lower extr emity deep veins from the inguinal ligament to the popliteal fossa. COMPARISON: None. FINDINGS: The deep veins are normally compressible, and free of intraluminal thrombus. Color and pu lse Doppler demonstrate normal phasic intraluminal flow. There is normal augmentation response to di stal compression maneuver. IMPRESSION: Negative for DVT. Reviewed by: Elvin Romo MD on 06/02/2022 11:15 AM PDT Approved by: Elvin Romo MD on 06/02/2022 11:15 AM PDT Station ID: [id number]
== END 2022-06-02 10:58 | disposition home or self-care (01) ==
LOC: ED 04:34
DX: R25.2 Cramp and spasm (principal); R20.2 Paresthesia of skin
CPT/HCPCS: 99283; 99284

== ENCOUNTER 2022-06-25 19:33 | Emergency (ER) | payer OTHER ==
--- NOTE | 2022-06-25 20:15 | ED Physician Documentation ---
History of Present Illness - Stated complaint Stated Complaint: BURNING CHEST - Chief complaint Chief Complaint: Resp - Additonal information Additional information: 41 of female presents emergency department for evaluation of cough that began 3 weeks ago after traveling home from [facility]. It is waxed and waned in its course. She has taken [id number] decongestants and cough medicines without relief. No fevers. Today she had some blood-tinged sputum. She does occasionally vape though not recently. No nausea or vomiting. Review of Systems Constitutional: reports: Reviewed and negative Cardiac: denies: Chest pain / pressure Respiratory: reports: Cough. denies: Dyspnea GI: reports: Reviewed and negative : reports: Reviewed and negative PD PAST MEDICAL HISTORY - Past Medical History Cardiovascular: None Respiratory: Asthma GI: GERD, Cholelithiasis : None HEENT: None Psych: None Musculoskeletal: Osteoarthritis Derm: Eczema - Past Surgical History Past Surgical History: Yes General: Cholecystectomy - Present Medications Home Medications: Ambulatory Orders Medication Instructions Recorded Confirmed Omeprazole Magnesium 20 mg PO DAILY 06/02/22 06/02/22 predniSONE [Deltasone] 20 mg PO [id number] #21 tab 06/02/22 Azithromycin [Zithromax] 0 mg PO DAILY #6 tablet 06/25/22 - Allergies Allergies/Adverse Reactions: Allergies Allergy/AdvReac Type Severity Reaction Status Date / Time No Known Drug Allergies Allergy Verified 06/25/22 19:53 - Social History Does the pt smoke?: No Smoking Status: Never smoker Does the pt drink ETOH?: No Does the pt have substance abuse?: No - Immunizations Immunizations are current?: Yes - POLST Patient has POLST: No PD ED PE NORMAL - General General: Alert and oriented X 3, No acute distress - HEENT HEENT: PERRL - Neck Neck: Supple, no meningeal sign, No adenopathy - Cardiac Cardiac: RRR, No murmur - Respiratory Respiratory: No respiratory distress, Clear bilaterally - Abdomen Abdomen: Normal bowel sounds, Soft - Back Back: No CVA TTP - Derm Derm: Normal color, Warm and dry, No rash - Extremities Extremities: No deformity, No tenderness to palpate, Normal ROM s pain Results - Vitals Vitals: Vital Signs - 24 hr 06/25/22 06/25/22 19:37 20:50 Temperature 37.2 C Heart Rate 86 82 Respiratory 18 18 Rate Blood Pressure 131/74 H 140/91 H O2 Saturation 98 99 Oxygen O2 Source Room air - Rads (name of study) cxr Relevant Findings:: Final report received (No acute cardiopulmonary process) PD Medical Decision Making - ED course Complexity details: reviewed results, re-evaluated patient, d/w patient ED course: 41-year-old female presents emergency department for evaluation of cough that began 3 weeks ago. This occurred after traveling to [place]. Her younger son and other child at home are also sick with similar. On exam cardiopulmonary auscultation was unremarkable. No hypoxia on room air. She is however reporting some blood-tinged sputum and at this point I feel would be appropriate to treat for bronchitis by giving her a short course of azithromycin. We did discuss the usual emergent return precautions for failure symptoms to resolve. She will follow closely with her PCP Departure - Departure Disposition: Home, Self Care Clinical Impression: Acute bronchitis Qualifiers: Bronchitis organism: unspecified organism Qualified Code(s): J20.9 - Acute bronchitis, unspecified Condition: Stable Record reviewed to determine appropriate education?: Yes Instructions: ED Upper Resp Infec Abx Tx Prescriptions: Azithromycin [Zithromax] 0 mg PO DAILY #6 tablet Comments: You are seen today in the emergency department because for about 3 weeks you have had a persistent cough after traveling to [place]. Your 2 children at [facility] have also been sick with similar. Your lungs today sound normal and the chest x-ray is normal but given the productive cough that has failed to improve as well as some blood-tinged sputum we will be sending a prescription for azithromycin, an antibiotic, to your preferred pharmacy. I recommend that you stay well-hydrated. You can take Ibuprofen 600 mg with food 2-3 times a day or alternate with 500 mg of Tylenol also 2-3 times a day. Some of your symptoms may be related to seasonal allergies. I do encourage you to use a daily allergy medicine like Claritin or Zyrtec or even Flonase after showering Please discuss this ED visit with your primary care provider. Return to the ER if your symptoms or not improving. Discharge Date/Time: 06/25/22 20:51
[2022-06-25 20:52] VITALS: BP 140/91
--- NOTE | 2022-06-25 20:57 | XRAY Report ---
PROCEDURE: Chest 1 View X-Ray INDICATIONS: chest pain; cough for 3 weeks TECHNIQUE: One view of the chest was acquired. COMPARISON: Chest x-ray 03/31/2022. FINDINGS: Surgical changes and devices: None. Lungs and pleura: No pleural effusions or pneumothorax. Lungs are clear. Mediastinum: Mediastinal contours appear normal. Heart size is normal. Bones and chest wall: No suspicious bony lesions. There is a metallic density projecting over the le ft hemithorax which is likely external. IMPRESSION: No acute cardiopulmonary disease. Reviewed by: Sundar Tubbs MD on 06/25/2022 8:55 PM PDT Approved by: Sundar Tubbs MD on 06/25/2022 8:55 PM PDT Station ID: [id number]
== END 2022-06-25 20:51 | disposition home or self-care (01) ==
LOC: ED 19:33
DX: J20.9 Acute bronchitis, unspecified (principal); F17.290 Nicotine dependence, other tobacco product, uncomplicated
CPT/HCPCS: 99283

== ENCOUNTER 2022-07-06 19:30 | Emergency (ER) | payer OTHER ==
[2022-07-06 19:44] VITALS: BP 149/94
--- NOTE | 2022-07-06 20:39 | XRAY Report ---
PROCEDURE: Chest 2 View X-Ray INDICATIONS: back pain TECHNIQUE: 2 views of the chest were acquired. COMPARISON: CXR 06/25/2022. FINDINGS: Surgical changes and devices: Cholecystectomy clips.. Lungs and pleura: No pleural effusions or pneumothorax. Lungs are clear. Mediastinum: Mediastinal contours appear unchanged. Heart size is normal. Bones and chest wall: No suspicious bony lesions. Overlying soft tissues appear unremarkable. IMPRESSION: No acute cardiopulmonary process. Reviewed by: Shiraz Waldron MD on 07/06/2022 8:37 PM PDT Approved by: Shiraz Waldron MD on 07/06/2022 8:37 PM PDT Station ID: [id number]
[2022-07-06] MEDS ORDERED: HYDROcod/ACET 5/325 Prepack 4 PO STA (20:48)
--- NOTE | 2022-07-06 20:49 | ED Physician Documentation ---
PD HPI BACK PAIN - Stated complaint Stated Complaint: BACK PX - Chief complaint Chief Complaint: Back Pain - History obtained from History obtained from: Patient - Additional information Additional information: She was sick with bronchitis 2 weeks ago. Cough is better but still has some back pain from the coughing. No shortness of breath, no fevers. No radiation of the pain. PD PAST MEDICAL HISTORY - Past Medical History Cardiovascular: None Respiratory: Asthma GI: GERD, Cholelithiasis : None HEENT: None Psych: None Musculoskeletal: Osteoarthritis Derm: Eczema - Past Surgical History Past Surgical History: Yes General: Cholecystectomy - Present Medications Home Medications: Ambulatory Orders Medication Instructions Recorded Confirmed Omeprazole Magnesium 20 mg PO DAILY 06/02/22 06/02/22 predniSONE [Deltasone] 20 mg PO [id number] #21 tab 06/02/22 Azithromycin [Zithromax] 0 mg PO DAILY #6 tablet 06/25/22 HYDROcod/ACETAM 5/325 [[place] 5/325] 1 - 2 tab PO Q6H PRN #15 tablet 07/06/22 - Allergies Allergies/Adverse Reactions: Allergies Allergy/AdvReac Type Severity Reaction Status Date / Time No Known Drug Allergies Allergy Verified 06/25/22 19:53 - Social History Does the pt smoke?: No Smoking Status: Never smoker Does the pt drink ETOH?: No Does the pt have substance abuse?: No - Immunizations Immunizations are current?: Yes - POLST Patient has POLST: No PD ED PE NORMAL - Vitals Vital signs reviewed: Yes - General General: Alert and oriented X 3, No acute distress - HEENT HEENT: PERRL, EOMI - Neck Neck: Supple, no meningeal sign, No bony TTP - Cardiac Cardiac: RRR, No murmur - Respiratory Respiratory: No respiratory distress, Clear bilaterally - Back Back: Other (She is some tenderness to the area just lateral to the thoracic spine posteriorly on the left. This reproduces the pain she is here for.) - Neuro Neuro: Alert and oriented X 3, Normal speech Results - Vitals Vitals: Vital Signs - 24 hr 07/06/22 19:41 Temperature 36.5 C Heart Rate 73 Respiratory 16 Rate Blood Pressure 149/94 H O2 Saturation 100 Oxygen O2 Source Room air - Rads (name of study) 2 view chest x-ray is unremarkable Relevant Findings:: Final report received, EMP independent interpretation of test PD Medical Decision Making - ED course ED course: History and physical most consistent with probably some torn cartilage at the junction of the ribs and thoracic spine. NSAIDs and relative rest and gentle stretching were advised. Departure - Departure Disposition: 01 Home, Self Care Clinical Impression: Back strain Condition: Good Record reviewed to determine appropriate education?: Yes Instructions: ED Neck Back Pain General Prescriptions: HYDROcod/ACETAM 5/325 [[place] 5/325] 1 - 2 tab PO Q6H PRN #15 tablet PRN Reason: Pain Comments: I sent your prescription electronically [employer] in [place]. If pain is not too bad take ibuprofen, 800 mg for the pain. If you take the stronger medication do not drink or drive with it. Return for new or worsening symptoms. Follow-up with your primary care physician in a week if not better. Call your doctor to arrange a follow-up appointment, make the next available appointment. In the interim, return anytime if worse or if new symptoms develop.
== END 2022-07-06 21:12 | disposition home or self-care (01) ==
LOC: ED 19:30
DX: S39.012A Strain of muscle, fascia and tendon of lower back, initial encounter (principal); X58.XXXA Exposure to other specified factors, initial encounter
CPT/HCPCS: 99283; 99284